=== PATIENT | female | born 1935 | race Caucasian/White ===

== ENCOUNTER 2018-08-08 15:13 | Outpatient (CLI) | payer MEDICARE, BC ==
--- NOTE | 2018-08-08 15:58 | BD ---
DEXA BONE DENSITOMETRY: (Dual energy X-ray Absorptiometry) 08/08/18 HISTORY: 82-year-old white female for postmenopausal, age-related, osteoporosis screening examination. Ht. 65 inches. Wt. 100 lb. Age of menopause: 48 years. COMPARISON: None available. FINDINGS: The bone mineral density (BMD) is given in grams per square centimeter (g/cm2): LUMBAR SPINE: BMD(g/cm2) T-score Z-score L1: 0.623 -3.3 -0.8 L2: 0.643 -3.5 -0.7 L3: 0.591 -4.5 -1.5 L4: 0.692 -3.4 -0.3 Total: 0.641 -3.7 -0.8 HIP: Femoral neck: 0.582 -2.4 0.1 Total: 0.454 -4.0 1.7 IMPRESSION: 1) The mean bone mineral density of the lumbar spine is osteoporotic. Fracture risk is high. 2) The bone mineral density of the femoral neck is osteoporotic. Fracture risk is high. JN R POS: [facility]
--- NOTE | 2018-08-08 16:02 | RAD ---
FEXAM:AP pelvis HISTORY: Hip pain bilateral COMPARISON: 05/16/2016 study. FINDINGS:The bones are demineralized. Pelvic ring is intact without evidence of acute fracture. There is deformity to the right side of the symphysis consistent with old injury possibly an old healed in sufficiency fracture. Marked arthritic changes of both hips with osteonecrosis changes are very simil ar to the previous exam. IMPRESSION:No acute changes.
--- NOTE | 2018-08-08 16:02 | RAD ---
FExam:Left hip 2 views HISTORY: Pain. Bilateral pain. COMPARISON: 11/16/2010 FINDINGS: Severe deformity of the left hip joint space. There is remodeling of the femoral head. Ther e is sclerosis of the femoral head as well as the acetabulum. IMPRESSION: Changes and deformity involving the left hip, due to degenerative change. Findings have d eveloped since the previous examination from 11/16/2010
--- NOTE | 2018-08-08 16:08 | RAD ---
RIGHT HIP TWO VIEW 08/08/18 HISTORY: Pain. COMPARISON: Radiograph from 2017. 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 This is similar to the comparison exams. Old obturator ring fractures. IMPRESSION: Avascular necrosis femoral head with flattening and articular surface remodeling with large osteophyt e formation and secondary degenerative disease of the acetabulum. POS: [facility]
== END 2018-08-08 15:14 | disposition home or self-care (01) ==
LOC: BICMAMMO 15:13
PROVIDERS: ATTEND Internal Medicine Rheumatology
DX: M81.0 Age-related osteoporosis without current pathological fracture (principal); M25.551 Pain in right hip; M87.851 Other osteonecrosis, right femur; M25.751 Osteophyte, right hip; M16.0 Bilateral primary osteoarthritis of hip
CPT/HCPCS: 72170; 77080

== ENCOUNTER 2018-08-18 21:51 | Emergency (ER) | payer MEDICARE, BC ==
[2018-08-18 22:34] LABS: #Basophils 0.1 thou/uL (0.0-0.2); #Eosinphils 0.2 thou/uL (0.0-0.7); #Lymphocytes 2.1 thou/uL (1.20-3.40); #Monocytes 0.7 thou/uL (0.11-0.59); #Neutrophils 6.2 thou/uL (1.40-6.50); %Eosinophils 1.7 % (0.0-10.0); %Lymphocytes 23.1 % (21.0-51.0); %Neutrophils 67.3 % (42.0-75.0); Hemoglobin 12.6 g/dL (12.0-16.0); Mean Corpuscular HGB CONC 33.5 g/dL (32.0-36.0); Mean Corpuscular Hemoglobin 33.7 pg (27.0-31.0); Mean Platelet Volume 6.1 fL (7.4-10.4); Platelet Count 464 thou/uL (130-400); RBC Distribution Width 11.7 % (11.5-14.5); Red Blood Cell (RBC) Count 3.74 mill/uL (4.20-5.40); White Blood Cell (WBC) Count 9.3 thou/uL (4.8-10.8)
[2018-08-18 22:55] LABS: ALT (SGPT) 11 U/L (8-55); AST (SGOT) 15 U/L (5-34); Albumin 3.9 g/dL (3.4-4.8); Alkaline Phosphatase 64 U/L (40-150); Anion Gap 12 mmol/L (10-20); BUN (Urea Nitrogen) 20 mg/dL (9.8-20.1); Bilirubin, Total 0.3 mg/dL (0.2-1.2); Calc. Creatinine Clearance 0 mL/min (70-130); Calcium 9.4 mg/dL (7.8-10.44); Carbon Dioxide 26 mmol/L (23-31); Chloride 96 mmol/L (98-107); Estimated GFR-MDRD 78; Globulin 2.7 g/dL (2.4-3.5); Glucose 100 mg/dL (83-110); Potassium 3.6 mmol/L (3.5-5.1); Protein, Total 6.6 g/dL (6.0-8.3); Sodium 130 mmol/L (136-145)
--- NOTE | 2018-08-18 23:05 | RAD ---
Chest one view HISTORY: Syncope. FINDINGS: Cardiac silhouette is magnified and enlarged. Pulmonary vasculature is unremarkable. Medias tinum is midline with aortic calcification. No lobar consolidation or evidence of pneumothorax. Degenerative changes of the shoulders. monitoring and evaluation advisor leads overlie the chest. IMPRESSION: Borderline cardiomegaly. Atherosclerosis.
== END 2018-08-19 00:30 | disposition home or self-care (01) ==
LOC: ERS 21:51
DX: I10 Essential (primary) hypertension (principal); M35.3 Polymyalgia rheumatica; Z79.899 Other long term (current) drug therapy
CPT/HCPCS: 36415; 71045; 80053; 83880; 84484; 85025; 93005; 94760

== ENCOUNTER 2019-02-22 16:23 | Inpatient (IN) | payer MEDICARE, BC ==
[2019-02-22 17:19] LABS: #Basophils 0.1 thou/uL (0.0-0.2); #Eosinphils 0.1 thou/uL (0.0-0.7); #Lymphocytes 1.1 thou/uL (1.20-3.40); #Monocytes 0.4 thou/uL (0.11-0.59); #Neutrophils 8.8 thou/uL (1.40-6.50); %Basophils 0.7 % (0.0-1.0); %Eosinophils 0.8 % (0.0-10.0); %Lymphocytes 10.3 % (21.0-51.0); %Monocytes 3.4 % (0.0-10.0); %Neutrophils 84.7 % (42.0-75.0); Mean Corpuscular HGB CONC 33.5 g/dL (32.0-36.0); Mean Corpuscular Hemoglobin 32.2 pg (27.0-31.0); Mean Corpuscular Volume 96.2 fL (78.0-98.0); Mean Platelet Volume 7.2 fL (7.4-10.4); Platelet Count 375 thou/uL (130-400); Red Blood Cell (RBC) Count 4.96 mill/uL (4.20-5.40); White Blood Cell (WBC) Count 10.4 thou/uL (4.8-10.8)
[2019-02-22] MEDS ORDERED: Piperacillin/Tazobactam 3.375 GM VIAL ONE (17:20)
[2019-02-22] MEDS ORDERED: Acetaminophen 325 MG TAB ONE (17:20)
--- NOTE | 2019-02-22 17:24 | CT ---
EXAM: CT brain without contrast HISTORY: Confusion and altered mental status. COMPARISON: None TECHNIQUE: Multiple contiguous axial images were obtained and a CT of the brain without contrast. FINDINGS: There are scattered hypodensities in the subcortical and periventricular white matter consi stent with small vessel ischemic disease. There is no evidence of hydrocephalus, intracranial hemorrhage, or extra-axial fluid collection. The calvarium and overlying soft tissues are unremarkable. The visualized paranasal sinuses and masto id air cells are well aerated. IMPRESSION: No evidence of acute intracranial abnormality
[2019-02-22 17:42] LABS: ALT (SGPT) 17 U/L (8-55); AST (SGOT) 20 U/L (5-34); Albumin 4.6 g/dL (3.4-4.8); Alkaline Phosphatase 94 U/L (40-110); Anion Gap 14 mmol/L (10-20); BUN (Urea Nitrogen) Less than 4 mg/dL (9.8-20.1); Bilirubin, Total 0.8 mg/dL (0.2-1.2); Calc. Creatinine Clearance 0 mL/min (70-130); Calcium 10.2 mg/dL (7.8-10.44); Carbon Dioxide 26 mmol/L (23-31); Chloride 99 mmol/L (98-107); Estimated GFR-MDRD 76; Globulin 3.7 g/dL (2.4-3.5); Glucose 101 mg/dL (83-110); Potassium 3.7 mmol/L (3.5-5.1); Protein, Total 8.3 g/dL (6.0-8.3); Sodium 135 mmol/L (136-145)
--- NOTE | 2019-02-22 17:46 | RAD ---
RADIOGRAPH CHEST 1 VIEW: DATE: 02/22/2019 HISTORY: 83-year-old female with altered mental status. Concern for aspiration. FINDINGS: There is cardiomegaly. There is no evidence of airspace density, pulmonary edema, or pneumothorax. Th e lateral costophrenic angles are not effaced. IMPRESSION: 1) No acute pulmonary findings. 2) cardiomegaly without congestive heart failure.
[2019-02-22] MEDS ORDERED: Diltiazem HCl 125 MG, Admixture Fee 1 EACH in Sodium Chloride 0.9% 100 ML IVPB SCH (19:30)
[2019-02-22] MEDS ORDERED: Sodium Chloride 0.9% 1,000 ML IV SCH (21:30)
[2019-02-22] MEDS ORDERED: Senokot S 8.6-50 MG TAB PO PRN (21:36)
[2019-02-22] MEDS ORDERED: Diltiazem 125 MG in Sodium Chloride 0.9% 100 ML IVPB SCH (22:00)
[2019-02-22] MEDS ORDERED: Enoxaparin Sodium 60 MG/0.6 ML SYRINGE SC SCH (22:45)
[2019-02-22 22:53] VITALS: BMI 18.2
[2019-02-23] MEDS: Piperacillin/Tazobactam 4.5 GM in Sodium Chloride 0.9% 100 ML IVPB SCH ×3 (01:16→17:57)
[2019-02-23] MEDS: Acetaminophen 325 MG TAB PO PRN ×2 (01:18→11:52)
--- NOTE | 2019-02-23 01:19 | HP ---
CHIEF COMPLAINT: Confusion. HISTORY OF PRESENT ILLNESS: The patient is an 83-year-old female with past medical history of hypertension, who presents to the hospital with confusion. The patient's son who is at the bedside states that the patient lives at home with her and he noticed that today she has been acting really strange, very confused. He did state that at times she will forget things and he has noticed some changes in her; however, today the changes were really significant, so that concerned him, so he brought her to the hospital for further evaluation. The patient's son also stated that she has been having some issues with her right foot and recently was on oral antibiotics and she finished those antibiotics about 2 or 3 days ago. According to him, there was no fevers, or chills, any nausea, vomiting, or any diarrhea. PAST MEDICAL HISTORY: Hypertension and also history of polymyalgia rheumatica. PAST SURGICAL HISTORY: She has had a hysterectomy, orthopedic surgery, wrist surgery and tonsillectomy. SOCIAL HISTORY: She denies any smoking history; however, drinks a glass of wine every night. Lives at home with . She is a full code per the son. ALLERGIES: HYDROCODONE. MEDICATIONS: 1. Aspirin 81 mg daily. 2. Cardizem 180 mg daily. 3. Gabapentin 300 mg daily. 4. Isosorbide 100 mg daily. 5. Losartan 100 mg daily. 6. Methotrexate 2.5 mg daily. 7. Metoprolol 25 mg daily. 8. Prednisone 5 mg daily. 9. Tramadol 50 mg 1 to 2 every 6 hours p.r.n. PHYSICAL EXAMINATION: VITAL SIGNS: Temperature of 99.0, O2 saturation 99% on room air, pulse was 123, blood pressure 185/87. GENERAL: She is awake; however, she is oriented to herself. When you ask her about the hospital, she says she is in the hospital; however, she is in [place]. CV: S1 and S2 present. Irregularly irregular. Rate controlled currently. LUNGS: Clear to auscultation. No rhonchi or wheezes noted. ABDOMEN: Soft. Bowel sounds are present x2. Mild pain upon palpation all around. EXTREMITIES: Her right lower leg has erythema. Pedal pulses are present bilaterally. There is no open cuts, lesions, or bruises. She does have pressure and some skin erythema at bilateral heels. NEUROVASCULAR: No focal deficits noted. She is able to move everything. SKIN: As I mentioned, her right leg does have some erythema. LABORATORY DATA: Are as of the following; WBCs of 10.4, hemoglobin of 16.0, hematocrit of 47.7, platelets of 375. Chemistry; sodium of 135, potassium of 3.7, BUN of less than 4, creatinine of 0.73. Troponin x1 is negative. DIAGNOSTIC STUDIES: She did have a CT brain and a chest x-ray. Her CT head did not show any intracranial abnormalities and her chest x-ray also was normal. ASSESSMENT AND PLAN: The patient is an 83-year-old female, who presents to the hospital with increased confusion. 1. Acute metabolic encephalopathy. This could be secondary to possible worsening of her cellulitis of her right foot versus cardiac in nature. Her troponin x1 was negative. She was found to be in atrial fibrillation with rapid ventricular response. I will start her on some Cardizem. Her CHADS Vasc score is greater than 2. I will start her also on some Lovenox. According to the son, the patient was on aspirin. She is at a fall risk. She only transfers from bed to chair, does not walk on a regular basis. We will get an echo and may consider consulting Cardiology. 2. Possible cellulitis. She is immunocompromised. She is on methotrexate and also on prednisone. She was on Keflex per the ER notes and the son stated that she finished that about 2 days ago. I will put her on some broad-spectrum antibiotics. I am going to go ahead and do some arterial Dopplers to her lower extremities and continue to monitor. 3. Hypertension. She is currently on Cardizem drip and we will continue her home medications. 4. Polymyalgia rheumatica. I will continue her prednisone to prevent any hypotension and I will check an ESR and a CRP. 5. Deep venous thrombosis prophylaxis. The patient is already on Lovenox, which we will continue. Job ID: [id number]
[2019-02-23 07:23] LABS: #Eosinphils 0.2 thou/uL (0.0-0.7); #Lymphocytes 1.3 thou/uL (1.20-3.40); #Monocytes 0.5 thou/uL (0.11-0.59); #Neutrophils 4.1 thou/uL (1.40-6.50); %Basophils 0.8 % (0.0-1.0); %Eosinophils 3.2 % (0.0-10.0); %Lymphocytes 20.7 % (21.0-51.0); %Monocytes 8.6 % (0.0-10.0); %Neutrophils 66.8 % (42.0-75.0); Hemoglobin 13.8 g/dL (12.0-16.0); Mean Corpuscular HGB CONC 33.1 g/dL (32.0-36.0); Mean Corpuscular Volume 96.9 fL (78.0-98.0); Mean Platelet Volume 7.2 fL (7.4-10.4); Platelet Count 275 thou/uL (130-400); White Blood Cell (WBC) Count 6.2 thou/uL (4.8-10.8)
[2019-02-23 07:43] LABS: Anion Gap 12 mmol/L (10-20); BUN (Urea Nitrogen) 6 mg/dL (9.8-20.1); Calc. Creatinine Clearance 53 mL/min (70-130); Calcium 8.9 mg/dL (7.8-10.44); Carbon Dioxide 20 mmol/L (23-31); Chloride 108 mmol/L (98-107); Estimated GFR-MDRD Greater than 90; Glucose 85 mg/dL (83-110); Potassium 3.3 mmol/L (3.5-5.1); Sodium 137 mmol/L (136-145)
[2019-02-23] MEDS: Enoxaparin Sodium 60 MG/0.6 ML SYRINGE SC SCH ×2 (09:17→21:42)
[2019-02-23] MEDS: Aspirin 81 mg Enteric Coated Tablet PO SCH (09:17)
--- NOTE | 2019-02-23 12:36 | PDOC.HOSPP ---
- Subjective Encounter Date: 02/23/19 Encounter Time: 11:30 Subjective: Expresses no complaint. Alert, coherent. - Objective Vital Signs & Weight: Vital Signs (12 hours) Temp Pulse Resp BP Pulse Ox 02/23/19 11:41 98.8 F 74 18 161/72 H 97 02/23/19 07:59 98.8 F 74 18 164/73 H 95 02/23/19 05:00 98 F 54 L 18 134/61 92 L Weight Weight 109 lb 9.116 oz I&O: 02/22/19 02/23/19 02/24/19 06:59 06:59 06:59 Output Total 1000 Balance -1000 Result Diagrams: 02/23/19 06:56 02/23/19 06:56 Hospitalist ROS - Medication Medications: Active Medications Generic Name Dose Route Start Last Admin Trade Name Freq PRN Reason Stop Dose Admin Acetaminophen 650 mg 02/22/19 21:36 02/23/19 11:52 Tylenol PO 650 mg Q4H PRN Administration Headache/Fever/Mild Pain (1-3) Aspirin 81 mg 02/23/19 09:00 02/23/19 09:17 Ecotrin PO 81 mg DAILY ALIZA Administration Enoxaparin Sodium 50 mg 02/23/19 09:00 02/23/19 09:17 Lovenox SC 50 mg 0900,2100 ALIZA Administration Piperacillin Sod/Tazobactam 100 mls @ 200 mls/hr 02/23/19 02:00 02/23/19 11: 00 Sod 4.5 gm/ Sodium Chloride IVPB 100 mls 0200,1000,1800 ALIZA Administration Diltiazem HCl 125 mg/ Sodium 125 mls @ 5 mls/hr 02/22/19 22:00 02/23/19 00:19 Chloride IVPB 125 mls INF ALIZA Administration Protocol 5 MG/HR Sodium Chloride 10 ml 02/23/19 09:00 02/23/19 09:18 Flush - Normal Saline IVF Not Given Q12HR ALIZA - Exam General Appearance: NAD Neck: no JVD Heart: RRR Respiratory: CTAB Gastrointestinal: soft Extremities: 1+ LE edema (+some redness in distal third of both legs+ skin changes of chronic venous insufficiency..) Neurological: no focal deficits Hosp A/P (1) Bilateral cellulitis of lower leg Code(s): L03.116 - CELLULITIS OF LEFT LOWER LIMB; L03.115 - CELLULITIS OF RIGHT LOWER LIMB Status: Acute Plan: on antibiotics. F/U [facility] (2) Metabolic encephalopathy Code(s): G93.41 - METABOLIC ENCEPHALOPATHY Status: Acute Plan: She is Alert and Coherent at this time. (3) HTN (hypertension) Code(s): I10 - ESSENTIAL (PRIMARY) HYPERTENSION Status: Acute Plan: Syetolic is elevated. No new intervention at this time.. (4) Polymyalgia rheumatica Code(s): M35.3 - POLYMYALGIA RHEUMATICA Status: Acute Plan: Was on immuno suppressive med.. - Plan Continue current management. f/u [facility]
[2019-02-23] MEDS ORDERED: FLU VACC TS2019-20(65YR UP)/PF 180 MCG/0.5 ML SYRINGE IM ONE (21:00)
[2019-02-23] MEDS ORDERED: Prevnar 13-Val Conj/PF 0.5 ML SYRINGE IM ONE (21:00)
[2019-02-23] MEDS: Vancomycin HCl 1 GM in Premix Bag 1 BAG IVPB SCH (21:41)
[2019-02-23] MEDS: Metoprolol Tartrate 25 MG TAB PO SCH (21:43)
[2019-02-24] MEDS: Piperacillin/Tazobactam 4.5 GM in Sodium Chloride 0.9% 100 ML IVPB SCH ×3 (01:32→18:40)
[2019-02-24] MEDS: Acetaminophen 325 MG TAB PO PRN (01:45)
[2019-02-24] MEDS ORDERED: Potassium Chloride 20 MEQ TAB PO SCH (02:30)
[2019-02-24] MEDS: traMADol HCl 50 MG TAB PO PRN (03:46)
[2019-02-24] MEDS: hydrALAZINE 20 MG/ML VIAL SLOW IVP PRN ×2 (03:47→16:23)
[2019-02-24 06:36] LABS: Anion Gap 14 mmol/L (10-20); BUN (Urea Nitrogen) 7 mg/dL (9.8-20.1); Calc. Creatinine Clearance 42 mL/min (70-130); Carbon Dioxide 19 mmol/L (23-31); Chloride 106 mmol/L (98-107); Estimated GFR-MDRD 71; Glucose 100 mg/dL (83-110); Magnesium 1.6 mg/dL (1.6-2.6); Sodium 136 mmol/L (136-145)
[2019-02-24] MEDS ORDERED: predniSONE 5 MG TAB PO SCH (08:00)
[2019-02-24] MEDS: Metoprolol Tartrate 25 MG TAB PO SCH ×2 (08:29→21:50)
[2019-02-24] MEDS: Aspirin 81 mg Enteric Coated Tablet PO SCH (08:29)
[2019-02-24] MEDS: Enoxaparin Sodium 60 MG/0.6 ML SYRINGE SC SCH ×2 (08:29→21:50)
[2019-02-24] MEDS: Chlorthalidone 25 MG TAB PO SCH (08:29)
[2019-02-24] MEDS: Gabapentin 300 MG CAP PO SCH (08:29)
--- NOTE | 2019-02-24 09:34 | PDOC.HOSPP ---
- Subjective Encounter Date: 02/24/19 Encounter Time: 09:32 Subjective: no distress , oriented to person only - Objective Vital Signs & Weight: Vital Signs (12 hours) Temp Pulse Resp BP Pulse Ox 02/24/19 08:24 97.8 F 67 18 161/72 H 95 02/24/19 04:00 98.6 F 60 16 181/80 H 98 02/24/19 03:47 67 02/24/19 00:00 67 177/125 H Weight Weight 109 lb 9.116 oz I&O: 02/23/19 02/24/19 02/25/19 06:59 06:59 06:59 Intake Total 1840 Output Total 2850 Balance -1010 Result Diagrams: 02/23/19 06:56 02/24/19 06:02 Hospitalist ROS - Medication Medications: Active Medications Generic Name Dose Route Start Last Admin Trade Name Freq PRN Reason Stop Dose Admin Acetaminophen 650 mg 02/22/19 21:36 02/24/19 01:45 Tylenol PO 650 mg Q4H PRN Administration Headache/Fever/Mild Pain (1-3) Aspirin 81 mg 02/23/19 09:00 02/24/19 08:29 Ecotrin PO 81 mg DAILY ALIZA Administration Chlorthalidone 25 mg 02/24/19 09:00 02/24/19 08:29 Hygroton PO 25 mg DAILY ALIZA Administration Diltiazem HCl 180 mg 02/24/19 09:00 02/24/19 08:29 Cardizem Cd PO 180 mg DAILY ALIZA Administration Enoxaparin Sodium 50 mg 02/23/19 09:00 02/24/19 08:29 Lovenox SC 50 mg 0900,2100 ALIZA Administration Gabapentin 300 mg 02/24/19 09:00 02/24/19 08:29 Neurontin PO 300 mg DAILY ALIZA Administration Hydralazine HCl 5 mg 02/24/19 02:25 02/24/19 03:47 Apresoline SLOW IVP 5 mg Q6HR PRN Administration Blood Pressure Vancomycin HCl 1 gm/ Device 200 mls @ 200 mls/hr 02/23/19 20:00 02/23/19 21: 41 IVPB 200 mls Q24HR@2000 ALIZA Administration Piperacillin Sod/Tazobactam 100 mls @ 200 mls/hr 02/23/19 02:00 02/24/19 01: 32 Sod 4.5 gm/ Sodium Chloride IVPB 100 mls 0200,1000,1800 ALIZA Administration Diltiazem HCl 125 mg/ Sodium 125 mls @ 5 mls/hr 02/22/19 22:00 02/23/19 00:19 Chloride IVPB 125 mls INF ALIZA Administration Protocol 5 MG/HR Metoprolol Tartrate 25 mg 02/23/19 21:00 02/24/19 08:29 Lopressor PO 25 mg BID ALIZA Administration Prednisone 5 mg 02/24/19 08:00 02/24/19 08:29 Prednisone PO 5 mg QAM-WM ALIZA Administration Sodium Chloride 10 ml 02/23/19 09:00 02/24/19 08:30 Flush - Normal Saline IVF 10 ml Q12HR ALIZA Administration Tramadol HCl 50 mg 02/24/19 02:26 02/24/19 03:46 Ultram PO 50 mg Q8H PRN Administration Pain - Exam General Appearance: awake alert Neck: no JVD Heart: irregular Respiratory: CTAB Gastrointestinal: soft, normal bowel sounds Extremities: no edema Extremities - other findings: erythema RLE on anterior surface Hosp A/P (1) Encephalopathy acute Code(s): G93.40 - ENCEPHALOPATHY, UNSPECIFIED Status: Acute (2) Atrial fibrillation with rapid ventricular response Code(s): I48.91 - UNSPECIFIED ATRIAL FIBRILLATION Status: Acute (3) Cellulitis and abscess of right leg Code(s): L03.115 - CELLULITIS OF RIGHT LOWER LIMB; L02.415 - CUTANEOUS ABSCESS OF RIGHT LOWER LIMB Status: Acute (4) HTN (hypertension) Code(s): I10 - ESSENTIAL (PRIMARY) HYPERTENSION Status: Chronic Qualifiers: Hypertension type: essential hypertension Qualified Code(s): I10 - Essential (primary) hypertension (5) Polymyalgia rheumatica Code(s): M35.3 - POLYMYALGIA RHEUMATICA Status: Chronic - Plan cont iv antibx transition to po meds for atrial fib cont po prednisone discuss with family
[2019-02-24 19:33] LABS: Vancomycin, Trough 6.3 ug/mL
[2019-02-24] MEDS ORDERED: Vancomycin HCl 750 MG in Sodium Chloride 0.9% 250 ML 250 ML IVPB SCH (21:00)
[2019-02-24] MEDS: Vancomycin HCl 1 GM in Premix Bag 1 BAG IVPB SCH (22:00)
[2019-02-25] MEDS: Piperacillin/Tazobactam 4.5 GM in Sodium Chloride 0.9% 100 ML IVPB SCH (03:19)
--- NOTE | 2019-02-25 08:49 | PDOC.HOSPP ---
- Subjective Encounter Date: 02/25/19 Encounter Time: 08:48 Subjective: alert, happy - Objective Vital Signs & Weight: Vital Signs (12 hours) Temp Pulse Resp BP Pulse Ox 02/25/19 07:47 97.8 F 98 18 199/87 H 95 02/25/19 04:00 98.4 F 63 18 172/70 H 98 Weight Admit Weight 109 lb 9.116 oz Weight 101 lb 13.657 oz I&O: 02/24/19 02/25/19 02/26/19 06:59 06:59 06:59 Intake Total 1840 1620 Output Total 2850 1340 Balance -1010 280 Result Diagrams: 02/23/19 06:56 02/24/19 06:02 Hospitalist ROS - Medication Medications: Active Medications Generic Name Dose Route Start Last Admin Trade Name Freq PRN Reason Stop Dose Admin Acetaminophen 650 mg 02/22/19 21:36 02/24/19 01:45 Tylenol PO 650 mg Q4H PRN Administration Headache/Fever/Mild Pain (1-3) Chlorthalidone 25 mg 02/24/19 09:00 02/24/19 08:29 Hygroton PO 25 mg DAILY ALIZA Administration Enoxaparin Sodium 50 mg 02/23/19 09:00 02/24/19 21:50 Lovenox SC 50 mg 0900,2100 ALIZA Administration Gabapentin 300 mg 02/24/19 09:00 02/24/19 08:29 Neurontin PO 300 mg DAILY ALIZA Administration Hydralazine HCl 5 mg 02/24/19 02:25 02/24/19 16:23 Apresoline SLOW IVP 5 mg Q6HR PRN Administration Blood Pressure Metoprolol Tartrate 25 mg 02/24/19 21:00 02/24/19 21:50 Lopressor PO 25 mg BID ALIZA Administration Miscellaneous Medication 25 mg 02/24/19 09:00 02/24/19 13:11 Movantik PO 25 mg DAILY ALIZA Administration Sodium Chloride 10 ml 02/23/19 09:00 02/24/19 21:51 Flush - Normal Saline IVF 10 ml Q12HR ALIZA Administration Tramadol HCl 50 mg 02/24/19 02:26 02/24/19 03:46 Ultram PO 50 mg Q8H PRN Administration Pain - Exam General Appearance: awake alert Neck: no JVD Heart: RRR, no murmur Respiratory: CTAB Gastrointestinal: soft, non-tender, normal bowel sounds Extremities: no edema Extremities - other findings: erythema RLE Hosp A/P (1) Encephalopathy acute Code(s): G93.40 - ENCEPHALOPATHY, UNSPECIFIED Status: Acute (2) Atrial fibrillation with rapid ventricular response Code(s): I48.91 - UNSPECIFIED ATRIAL FIBRILLATION Status: Chronic (3) Cellulitis and abscess of right leg Code(s): L03.115 - CELLULITIS OF RIGHT LOWER LIMB; L02.415 - CUTANEOUS ABSCESS OF RIGHT LOWER LIMB Status: Acute (4) HTN (hypertension) Code(s): I10 - ESSENTIAL (PRIMARY) HYPERTENSION Status: Chronic Qualifiers: Hypertension type: essential hypertension Qualified Code(s): I10 - Essential (primary) hypertension (5) Polymyalgia rheumatica Code(s): M35.3 - POLYMYALGIA RHEUMATICA Status: Chronic - Plan now in [facility]SR, cont meds, asa loathe to anticoagulate, will discuss with family cont carolina lehman tomorrow
[2019-02-25] MEDS ORDERED: cefTRIAXone\\ROCEPHIN 1 GM in Sodium Chloride 0.9% 100 ML IVPB SCH (09:00)
[2019-02-25] MEDS ORDERED: Non-Formulary Item 1 EACH (Losartan Potassium [Losartan Potassium] 100 MG) PO SCH (09:00)
[2019-02-25] MEDS: Gabapentin 300 MG CAP PO SCH (09:31)
[2019-02-25] MEDS: Metoprolol Tartrate 25 MG TAB PO SCH ×2 (09:32→20:57)
[2019-02-25] MEDS: Enoxaparin Sodium 60 MG/0.6 ML SYRINGE SC SCH ×2 (09:32→20:58)
[2019-02-25] MEDS: Chlorthalidone 25 MG TAB PO SCH (09:32)
[2019-02-25] MEDS: predniSONE 5 MG TAB PO SCH (09:32)
[2019-02-25] MEDS: Aspirin 81 mg Enteric Coated Tablet PO SCH (09:32)
[2019-02-25] MEDS: Losartan 25 MG TAB PO SCH (09:36)
[2019-02-25] MEDS: hydrALAZINE 20 MG/ML VIAL SLOW IVP PRN (20:57)
--- NOTE | 2019-02-25 22:31 | CON ---
DATE OF CONSULTATION: 02/25/2019 CONSULTING PHYSICIAN: Hospitalist Service. IMPRESSION: 1. Dementia. 2. Prior right posterior parietal stroke. 3. Atrial fibrillation. 4. Hypertension. PLAN: 1. Consider either antiplatelet therapy versus anticoagulation to reduce stroke risk. 2. intermediate placement. HISTORY OF PRESENT ILLNESS: Ms. Cerna is an 83-year-old woman who was admitted from the long term. She has a history of hypertension and polymyalgia rheumatica. She had initial CT scan in the emergency room, which showed an old area of infarction in the right posterior parietal region. Echocardiogram shows a normal ejection fraction. She is in intermittent atrial fibrillation. She is unable to give me any further history as to what has taken place. PAST MEDICAL HISTORY: As listed above. ALLERGIES: HYDROCODONE. MEDICATIONS: Medication list from long term was reviewed and appears that she was on aspirin prior to admission. SOCIAL HISTORY: Otherwise unknown. FAMILY HISTORY: Unknown. REVIEW OF SYSTEMS: Not obtainable. PHYSICAL EXAMINATION: GENERAL: She is a thin, elderly lady, is partially covered up while lying in bed, watching television. HEENT: Pupils are equal. Conjunctivae are clear. Oropharynx is clear. Cranium, normocephalic and atraumatic. NECK: Supple. No lymphadenopathy. EXTREMITIES: No cyanosis, clubbing, or edema. NEUROLOGIC: She is alert and only oriented to person. She has no idea where she is. She thought that she is in some relative's home. She is capable following commands well. Her speech seems to be fluent and clear. She is able to name objects without difficulty. Cranial nerves are intact throughout. Motor exam shows good contracting executive strength bilaterally. There is no fix or drift present. I did not elicit any loss of a visual field on the left. Sensation is intact. There is no tremor or dysmetria present. SUMMARY: This is an 83-year-old woman with dementia and a prior stroke. She was previously admitted on aspirin, which would be a reasonable plan considering her overall picture. I do not see anything in particular that we can do for her dementia. She can be transferred back to the long term at your discretion. Job ID: [id number]
[2019-02-25] MEDS: traMADol HCl 50 MG TAB PO PRN (23:20)
[2019-02-26] MEDS ORDERED: hydrALAZINE 20 MG/ML VIAL SLOW IVP PRN ×2 (03:33→03:53)
[2019-02-26] MEDS: Acetaminophen 325 MG TAB PO PRN ×2 (06:09→22:34)
--- NOTE | 2019-02-26 07:36 | PDOC.HOSPP ---
- Subjective Encounter Date: 02/26/19 Encounter Time: 07:36 Subjective: cheerfull, still confused - Objective Vital Signs & Weight: Vital Signs (12 hours) Temp Pulse Resp BP BP Pulse Ox 02/26/19 06:44 63 151/94 H 02/26/19 04:28 62 191/88 H 02/26/19 04:00 98.9 F 62 18 191/88 H 98 02/25/19 23:29 61 189/83 H 02/25/19 20:57 65 208/87 H Weight Admit Weight 109 lb 9.116 oz Weight 95 lb 7.362 oz I&O: 02/25/19 02/26/19 02/27/19 06:59 06:59 06:59 Intake Total 1620 1380 Output Total 1340 2160 Balance 280 -780 Result Diagrams: 02/23/19 06:56 02/24/19 06:02 Hospitalist ROS - Medication Medications: Active Medications Generic Name Dose Route Start Last Admin Trade Name Freq PRN Reason Stop Dose Admin Acetaminophen 650 mg 02/22/19 21:36 02/26/19 06:09 Tylenol PO 650 mg Q4H PRN Administration Headache/Fever/Mild Pain (1-3) Aspirin 81 mg 02/25/19 09:00 02/25/19 09:32 Ecotrin PO 81 mg DAILY ALIZA Administration Chlorthalidone 25 mg 02/24/19 09:00 02/25/19 09:32 Hygroton PO 25 mg DAILY ALIZA Administration Enoxaparin Sodium 50 mg 02/23/19 09:00 02/25/19 20:58 Lovenox SC 50 mg 0900,2100 ALIZA Administration Gabapentin 300 mg 02/24/19 09:00 02/25/19 09:31 Neurontin PO 300 mg DAILY ALIZA Administration Hydralazine HCl 10 mg 02/26/19 03:53 02/26/19 04:28 Apresoline SLOW IVP 10 mg Q6HR PRN Administration SBP Greater Than 180 Losartan Potassium 100 mg 02/25/19 09:00 02/25/19 09:36 Cozaar PO 100 mg DAILY ALIZA Administration Metoprolol Tartrate 25 mg 02/24/19 21:00 02/25/19 20:57 Lopressor PO 25 mg BID ALIZA Administration Miscellaneous Medication 25 mg 02/24/19 09:00 02/25/19 09:31 Movantik PO 25 mg DAILY ALIZA Administration Prednisone 5 mg 02/25/19 09:00 02/25/19 09:32 Prednisone PO 5 mg DAILY ALIZA Administration Sodium Chloride 10 ml 02/23/19 09:00 02/25/19 20:58 Flush - Normal Saline IVF 10 ml Q12HR ALIZA Administration Tramadol HCl 50 mg 02/24/19 02:26 02/25/19 23:20 Ultram PO 50 mg Q8H PRN Administration Pain - Exam General Appearance: awake alert Neck: no JVD Heart: RRR, no murmur Respiratory: CTAB Gastrointestinal: soft, normal bowel sounds Extremities: no edema Hosp A/P (1) Encephalopathy acute Code(s): G93.40 - ENCEPHALOPATHY, UNSPECIFIED Status: Resolved (2) Atrial fibrillation with rapid ventricular response Code(s): I48.91 - UNSPECIFIED ATRIAL FIBRILLATION Status: Chronic (3) Cellulitis and abscess of right leg Code(s): L03.115 - CELLULITIS OF RIGHT LOWER LIMB; L02.415 - CUTANEOUS ABSCESS OF RIGHT LOWER LIMB Status: Acute (4) HTN (hypertension) Code(s): I10 - ESSENTIAL (PRIMARY) HYPERTENSION Status: Chronic Qualifiers: Hypertension type: essential hypertension Qualified Code(s): I10 - Essential (primary) hypertension (5) Polymyalgia rheumatica Code(s): M35.3 - POLYMYALGIA RHEUMATICA Status: Chronic (6) Dementia Code(s): F03.90 - UNSPECIFIED DEMENTIA WITHOUT BEHAVIORAL DISTURBANCE Status: Acute Qualifiers: Dementia type: unspecified type Dementia behavioral disturbance: without behavioral disturbance Qualified Code(s): F03.90 - Unspecified dementia without behavioral disturbance - Plan now in [facility]SR, cont meds, asa loathe to anticoagulate, will discuss with family change antibx to po omnicef incease diltizem fo elevated BP
[2019-02-26] MEDS: predniSONE 5 MG TAB PO SCH (08:40)
[2019-02-26] MEDS: Aspirin 81 mg Enteric Coated Tablet PO SCH (08:40)
[2019-02-26] MEDS: Chlorthalidone 25 MG TAB PO SCH (08:41)
[2019-02-26] MEDS: Gabapentin 300 MG CAP PO SCH (08:41)
[2019-02-26] MEDS: Metoprolol Tartrate 25 MG TAB PO SCH ×2 (08:41→19:30)
[2019-02-26] MEDS: Losartan 25 MG TAB PO SCH (08:42)
[2019-02-26] MEDS: Cefdinir 300 MG CAP PO SCH (08:43)
[2019-02-26] MEDS: Enoxaparin Sodium 60 MG/0.6 ML SYRINGE SC SCH ×2 (08:54→19:30)
[2019-02-26] MEDS ORDERED: Potassium Chloride 20 MEQ TAB PO SCH (16:45)
[2019-02-27] MEDS: traMADol HCl 50 MG TAB PO PRN (01:07)
[2019-02-27] MEDS: Gabapentin 300 MG CAP PO SCH (08:06)
[2019-02-27] MEDS: Enoxaparin Sodium 60 MG/0.6 ML SYRINGE SC SCH (08:06)
[2019-02-27] MEDS: Losartan 25 MG TAB PO SCH (08:06)
[2019-02-27] MEDS: Aspirin 81 mg Enteric Coated Tablet PO SCH (08:06)
[2019-02-27] MEDS: Cefdinir 300 MG CAP PO SCH (08:06)
[2019-02-27] MEDS: Chlorthalidone 25 MG TAB PO SCH (08:06)
[2019-02-27] MEDS: predniSONE 5 MG TAB PO SCH (08:07)
[2019-02-27] MEDS: Metoprolol Tartrate 25 MG TAB PO SCH (08:07)
--- NOTE | 2019-02-27 08:39 | PDOC.HOSPP ---
- Subjective Encounter Date: 02/27/19 Encounter Time: 08:36 Subjective: alert, cheerfull - Objective Vital Signs & Weight: Vital Signs (12 hours) Temp Pulse Resp BP BP Pulse Ox 02/27/19 07:48 98.0 F 66 18 192/81 H 95 02/27/19 04:15 98.7 F 58 L 16 143/65 H 95 02/27/19 00:00 54 L 16 148/72 H Weight Admit Weight 109 lb 9.116 oz Weight 93 lb 9.6 oz I&O: 02/26/19 02/27/19 02/28/19 06:59 06:59 06:59 Intake Total 1380 850 Output Total 2160 1650 Balance -780 -800 Result Diagrams: 02/23/19 06:56 02/24/19 06:02 Hospitalist ROS - Medication Medications: Active Medications Generic Name Dose Route Start Last Admin Trade Name Freq PRN Reason Stop Dose Admin Acetaminophen 650 mg 02/22/19 21:36 02/26/19 22:34 Tylenol PO 650 mg Q4H PRN Administration Headache/Fever/Mild Pain (1-3) Aspirin 81 mg 02/25/19 09:00 02/27/19 08:06 Ecotrin PO 81 mg DAILY ALIZA Administration Cefdinir 600 mg 02/26/19 09:00 02/27/19 08:06 Omnicef PO 600 mg DAILY ALIZA Administration Chlorthalidone 25 mg 02/24/19 09:00 02/27/19 08:06 Hygroton PO 25 mg DAILY ALIZA Administration Diltiazem HCl 240 mg 02/26/19 09:00 02/27/19 08:06 Cardizem Cd PO 240 mg DAILY ALIZA Administration Enoxaparin Sodium 50 mg 02/23/19 09:00 02/27/19 08:06 Lovenox SC 50 mg 0900,2100 ALIZA Administration Gabapentin 300 mg 02/24/19 09:00 02/27/19 08:06 Neurontin PO 300 mg DAILY ALIZA Administration Hydralazine HCl 10 mg 02/26/19 03:53 02/26/19 04:28 Apresoline SLOW IVP 10 mg Q6HR PRN Administration SBP Greater Than 180 Losartan Potassium 100 mg 02/25/19 09:00 02/27/19 08:06 Cozaar PO 100 mg DAILY ALIZA Administration Metoprolol Tartrate 25 mg 02/24/19 21:00 02/27/19 08:07 Lopressor PO 25 mg BID ALIZA Administration Miscellaneous Medication 25 mg 02/24/19 09:00 02/27/19 08:07 Movantik PO 25 mg DAILY ALIZA Administration Prednisone 5 mg 02/25/19 09:00 02/27/19 08:07 Prednisone PO 5 mg DAILY ALIZA Administration Sodium Chloride 10 ml 02/23/19 09:00 02/27/19 08:15 Flush - Normal Saline IVF 10 ml Q12HR ALIZA Administration Tramadol HCl 50 mg 02/24/19 02:26 02/27/19 01:07 Ultram PO 50 mg Q8H PRN Administration Pain - Exam Neck: no JVD Heart: RRR Respiratory: CTAB Gastrointestinal: soft Extremities: no edema Extremities - other findings: erythema RL leg resolved Hosp A/P (1) Encephalopathy acute Code(s): G93.40 - ENCEPHALOPATHY, UNSPECIFIED Status: Resolved (2) Atrial fibrillation with rapid ventricular response Code(s): I48.91 - UNSPECIFIED ATRIAL FIBRILLATION Status: Chronic (3) Cellulitis and abscess of right leg Code(s): L03.115 - CELLULITIS OF RIGHT LOWER LIMB; L02.415 - CUTANEOUS ABSCESS OF RIGHT LOWER LIMB Status: Acute (4) HTN (hypertension) Code(s): I10 - ESSENTIAL (PRIMARY) HYPERTENSION Status: Chronic Qualifiers: Hypertension type: essential hypertension Qualified Code(s): I10 - Essential (primary) hypertension (5) Polymyalgia rheumatica Code(s): M35.3 - POLYMYALGIA RHEUMATICA Status: Chronic (6) Dementia Code(s): F03.90 - UNSPECIFIED DEMENTIA WITHOUT BEHAVIORAL DISTURBANCE Status: Acute Qualifiers: Dementia type: unspecified type Dementia behavioral disturbance: without behavioral disturbance Qualified Code(s): F03.90 - Unspecified dementia without behavioral disturbance - Plan cont omnicef cont cardizem, etc probable DC today
[2019-02-27 11:10] VITALS: BP 152/73; TEMP 98.3
--- NOTE | 2019-02-28 06:16 | DIS ---
DATE OF ADMISSION: 02/22/2019 DATE OF DISCHARGE: 02/27/2019 ADMIT DIAGNOSIS: The patient admitted with the diagnosis of encephalopathy. FINAL DIAGNOSES: Senile dementia, atrial fibrillation, cellulitis of lower extremity, hypertension, polymyalgia rheumatica. DISCHARGE MEDICATIONS: 1. Metoprolol 25 mg twice a day. 2. Methotrexate 20 mg every seven days. 3. Gabapentin 300 mg a day. 4. Movantik 25 mg a day. 5. Losartan 100 mg a day. 6. Isosorbide 10 mg twice a day. 7. Chlorthalidone 25 mg a day. 8. Aspirin 81 mg a day. 9. Tramadol 50 mg one or two every 8 hours as needed for pain. 10. Prednisone 5 mg a day. 11. Omnicef 600 mg a day for 10 days. ALLERGIES: HYDROCODONE. DIET: Heart healthy. CODE STATUS: Full resuscitation. PENDING AT THE TIME OF DISCHARGE: Nothing. HOSPITAL COURSE: The patient was admitted through the [facility] to the [facility] with a diagnosis of cellulitis, confusion. The patient's initial laboratory 10.4 white count, followup 6.2; hemoglobin 16.0, followup 13.8; platelet count 375,000, followup 275,000. Comprehensive metabolic profile normal except for a sodium of 135. The patient had atrial fibrillation, well controlled on medicines. After examination, it was found that she most likely had senile dementia. Neurology was consulted. She was seen by Dr. Nehemias Laura, who concurred with the diagnosis. Blood cultures and urine cultures were negative. She was treated with IV Rocephin for her cellulitis, it is improved. She has been transitioned to Omnicef in discussion with family about home with home health, assisted living, etc. The final conclusion by the family was to take her home with home health. She is being discharged. PRIMARY CARE PHYSICIAN: SHELIA Deal. It is requested she see him in 7 days for followup. Job ID: [id number]
== END 2019-02-27 16:38 | disposition home or self-care (01) | DRG 602 ==
LOC: ERS 16:23 → 2NO 20:49
PROVIDERS: ADMIT Internal Medicine Nephrology; ATTEND Internal Medicine Nephrology
DX: L03.116 Cellulitis of left lower limb (principal); G93.41 Metabolic encephalopathy; I48.91 Unspecified atrial fibrillation; L03.115 Cellulitis of right lower limb; M35.3 Polymyalgia rheumatica; I10 Essential (primary) hypertension; L02.415 Cutaneous abscess of right lower limb; F03.90 Unspecified dementia, unspecified severity, without behavioral disturbance, psychotic disturbance, mood disturbance, and anxiety; Z79.82 Long term (current) use of aspirin; Z79.899 Other long term (current) drug therapy; Z90.710 Acquired absence of both cervix and uterus; Z90.89 Acquired absence of other organs; Z86.73 Personal history of transient ischemic attack (TIA), and cerebral infarction without residual deficits
CPT/HCPCS: 36415; 70450; 71045; 80048; 80053; 80202; 83605; 83735; 83880; 84443; 84484; 85025; 85652; 86140; 87040; 87086; 93005; 93306; 94760; 96361; 96365; 96367; 96375; J0360; J0696; J1650; J2543; J3370; J3490; J7050; J7512

== ENCOUNTER 2019-03-10 16:11 | Inpatient (IN) | payer MEDICARE, BC ==
[2019-03-10 16:41] LABS: #Basophils 0.1 thou/uL (0.0-0.2); #Eosinphils 0.1 thou/uL (0.0-0.7); #Lymphocytes 0.9 thou/uL (1.20-3.40); #Monocytes 0.4 thou/uL (0.11-0.59); #Neutrophils 10.5 thou/uL (1.40-6.50); %Basophils 0.4 % (0.0-1.0); %Eosinophils 0.7 % (0.0-10.0); %Lymphocytes 7.3 % (21.0-51.0); %Monocytes 3.2 % (0.0-10.0); %Neutrophils 88.4 % (42.0-75.0); Hemoglobin 13.7 g/dL (12.0-16.0); Mean Corpuscular HGB CONC 33.5 g/dL (32.0-36.0); Mean Corpuscular Hemoglobin 31.5 pg (27.0-31.0); Mean Corpuscular Volume 93.9 fL (78.0-98.0); Mean Platelet Volume 6.6 fL (7.4-10.4); Platelet Count 453 thou/uL (130-400); RBC Distribution Width 12.2 % (11.5-14.5); Red Blood Cell (RBC) Count 4.35 mill/uL (4.20-5.40); White Blood Cell (WBC) Count 11.9 thou/uL (4.8-10.8)
[2019-03-10 16:47] LABS: INR-International Normal Ratio 0.9; PTT 30.9 SEC (22.9-36.1); Prothrombin Time 12.2 SEC (12.0-14.7)
[2019-03-10 16:57] LABS: ALT (SGPT) 37 U/L (8-55); AST (SGOT) 35 U/L (5-34); Albumin 4.6 g/dL (3.4-4.8); Alkaline Phosphatase 80 U/L (40-110); Anion Gap 15 mmol/L (10-20); BUN (Urea Nitrogen) 20 mg/dL (9.8-20.1); Bilirubin, Total 0.5 mg/dL (0.2-1.2); Calc. Creatinine Clearance 0 mL/min (70-130); Calcium 9.6 mg/dL (7.8-10.44); Carbon Dioxide 25 mmol/L (23-31); Chloride 92 mmol/L (98-107); Estimated GFR-MDRD 69; Globulin 3.3 g/dL (2.4-3.5); Glucose 113 mg/dL (83-110); Potassium 4.1 mmol/L (3.5-5.1); Protein, Total 7.9 g/dL (6.0-8.3); Sodium 128 mmol/L (136-145)
--- NOTE | 2019-03-10 17:00 | RAD ---
RADIOGRAPH CHEST 1 VIEW: DATE: 03-10-19 HISTORY: 83-year-old female with chest pain and atrial fibrillation. FINDINGS: There is cardiomegaly. There is no evidence of air space density, pulmonary edema, or pneumothorax. T he lateral costophrenic angles are sharp. IMPRESSION: 1) No acute pulmonary findings. 2) Cardiomegaly without congestive heart failure. jn POS: CET
[2019-03-10] MEDS ORDERED: Acetaminophen 650 MG Suppository PR PRN (19:19)
[2019-03-10] MEDS ORDERED: Bisacodyl 5 MG TAB PO PRN (19:19)
[2019-03-10] MEDS ORDERED: hydrALAZINE 20 MG/ML VIAL SLOW IVP PRN (19:31)
--- NOTE | 2019-03-10 20:11 | HP ---
PRIMARY CARE PROVIDER: Deejay Lam MD CHIEF COMPLAINT: Low heart rate. HISTORY OF PRESENT ILLNESS: Ms. Cerna is a pleasant 83-year-old lady, who was seen at [facility] on March 10, 2019. She was hospitalized at this facility from February 22 to February 27 of this year for encephalopathy. She was found to have atrial fibrillation. Her Cardizem dose was increased from 180 mg to 240 mg daily during that hospitalization. She went to her primary care provider's office for assisted living evaluation. There, she was found to have slow heart rate. She was therefore sent to the emergency room. The patient denies any chest pain. She denies any palpitations. She denies any nausea or vomiting. She denies any abdominal pain. The patient is able to provide some history. Her son was by the bedside and was able to provide most of the history. REVIEW OF SYSTEMS: All systems were reviewed and found to be negative except for the pertinent positives mentioned above. PAST MEDICAL HISTORY: Hypertension, polymyalgia rheumatica, atrial fibrillation, senile dementia. PAST SURGICAL HISTORY: Hysterectomy, back surgery, tonsillectomy, left wrist surgery. SOCIAL HISTORY: The patient has wine with supper. She denies tobacco use or recreational drug use. ALLERGIES: HYDROCODONE. CURRENT MEDICATIONS: 1. Cardizem CD 240 mg daily. 2. Gabapentin 300 mg daily. 3. Losartan 100 mg daily. 4. Metoprolol tartrate 25 mg 2 times a day. 5. Prednisone 5 mg daily. 6. Tramadol p.r.n. 7. Movantik 25 mg daily. 8. Aspirin 81 mg daily. 9. Isosorbide dinitrate 10 mg 2 times a day. PHYSICAL EXAMINATION: GENERAL: Ms. Cerna is awake and alert, not in acute distress. VITAL SIGNS: Blood pressure is 179/65, pulse 48, respiratory rate 17, and oxygen saturation 100% on room air. She is afebrile. EYES: No scleral icterus, no conjunctival pallor. ENT: Moist mucosal membranes. No oropharyngeal erythema or exudates. NECK: Supple, nontender, trachea is midline. RESPIRATORY: Accessory muscles of breathing are not active. Chest wall movements are symmetric bilaterally. Lungs are clear to auscultation, without wheeze, rhonchi, or crepitations. CARDIOVASCULAR: S1 and S2 are heard, bradycardic. Peripheral pulses are palpable. ABDOMEN: Soft, nontender, bowel sounds are heard. NEUROLOGIC: Cranial nerves 2 through 12 are intact. MUSCULOSKELETAL: Power is 5/5 in all 4 extremities. SKIN: Mild erythema over the right roberts. No increase in warmth. Mildly tender. LYMPHATIC: No cervical lymphadenopathy. PSYCHIATRIC: Normal mood, normal affect, the patient is oriented to person, place, but not to time. LABORATORY DATA: Ms. Cerna's labs and investigations were reviewed. I reviewed her electrocardiogram, which shows sinus bradycardia with a ventricular rate of 50 beats per minute. She also had an electrocardiogram done at primary care provider's office, which showed a heart rate of 43. I also reviewed her chest x-ray, which does not show any pulmonary infiltrates. She has cardiomegaly. She has leukocytosis with 11,900 white cells, of which 88.4% are neutrophils, normal hemoglobin, elevated platelet count of 453,000, it was 275,000 on February 23, 2019, INR 0.9, decreased sodium of 128, sodium was 136 on February 24, 2019, normal potassium and normal creatinine. AST is mildly elevated at 35, otherwise LFTs are unremarkable. Troponin I is normal. ASSESSMENT AND PLAN: Ms. Cerna is a pleasant 83-year-old lady, who was seen at [facility] on March 10, 2019. Her problem list includes: 1. Bradycardia: Ms. Cerna is presenting with bradycardia in the context of calcium channel jose miguel use. Cardizem will be held. She will be admitted to inside polisher. Cardiology service will be consulted for opinion and help with management. 2. Hyponatremia: The patient appears to be asymptomatic from hyponatremia. We will recheck sodium level and reassess. 3. Atrial fibrillation: The patient has a history of atrial fibrillation. It is unclear why she is not on anticoagulation. Family reports that the patient is wheelchair bound. We will await cardiology service's opinion. 4. Polymyalgia rheumatica: Continue prednisone. 5. Hypertension: Continue losartan and isosorbide dinitrate. Many thanks for allowing me to participate in your patient's care. Please feel free to contact me with any questions or concerns. LEVEL OF RISK: High. LEVEL OF COMPLEXITY: High. Job ID: [id number]
[2019-03-10] MEDS: Isosorbide Dinitrate 5 MG TAB PO SCH (22:40)
[2019-03-11] MEDS: Acetaminophen 325 MG TAB PO PRN ×2 (02:09→11:28)
[2019-03-11 04:57] LABS: #Basophils 0.1 thou/uL (0.0-0.2); #Eosinphils 0.2 thou/uL (0.0-0.7); #Lymphocytes 1.8 thou/uL (1.20-3.40); #Monocytes 0.6 thou/uL (0.11-0.59); %Basophils 0.7 % (0.0-1.0); %Eosinophils 2.8 % (0.0-10.0); %Lymphocytes 23.7 % (21.0-51.0); %Monocytes 7.9 % (0.0-10.0); %Neutrophils 64.9 % (42.0-75.0); Hemoglobin 11.7 g/dL (12.0-16.0); Mean Corpuscular HGB CONC 33.7 g/dL (32.0-36.0); Mean Corpuscular Hemoglobin 31.6 pg (27.0-31.0); Mean Corpuscular Volume 93.7 fL (78.0-98.0); Mean Platelet Volume 6.6 fL (7.4-10.4); Platelet Count 376 thou/uL (130-400); White Blood Cell (WBC) Count 7.7 thou/uL (4.8-10.8)
[2019-03-11 05:26] LABS: Anion Gap 12 mmol/L (10-20); BUN (Urea Nitrogen) 16 mg/dL (9.8-20.1); Calc. Creatinine Clearance 47 mL/min (70-130); Calcium 8.6 mg/dL (7.8-10.44); Carbon Dioxide 26 mmol/L (23-31); Chloride 94 mmol/L (98-107); Estimated GFR-MDRD 88; Glucose 84 mg/dL (83-110); Potassium 3.7 mmol/L (3.5-5.1); Sodium 128 mmol/L (136-145)
[2019-03-11] MEDS ORDERED: Enalaprilat Dihydrate 1.25 MG/ML VIAL SLOW IVP PRN ×2 (09:04→09:15)
[2019-03-11] MEDS: Enoxaparin Sodium 40 MG/0.4 ML SYRINGE SC SCH (09:36)
[2019-03-11] MEDS: Aspirin 81 mg Enteric Coated Tablet PO SCH (09:36)
[2019-03-11] MEDS: Gabapentin 300 MG CAP PO SCH (09:36)
[2019-03-11] MEDS: Isosorbide Dinitrate 5 MG TAB PO SCH ×2 (09:37→20:13)
[2019-03-11] MEDS: Losartan 25 MG TAB PO SCH (09:37)
[2019-03-11] MEDS: predniSONE 5 MG TAB PO SCH (09:37)
[2019-03-11] MEDS: hydrALAZINE 20 MG/ML VIAL SLOW IVP PRN ×2 (09:46→15:54)
[2019-03-11] MEDS ORDERED: traMADol HCl 50 MG TAB PO PRN (13:41)
--- NOTE | 2019-03-11 13:45 | PDOC.HOSPP ---
- Subjective Encounter Date: 03/11/19 Encounter Time: 13:44 Subjective: Pt seen for followup re: bradycardia. Says she feels okay. - Objective Vital Signs & Weight: Vital Signs (12 hours) Temp Pulse Resp BP BP Pulse Ox 03/11/19 11:31 98.3 F 64 18 155/70 H 96 03/11/19 09:46 59 L 191/77 H 03/11/19 07:38 98.8 F 56 L 16 190/84 H 97 03/11/19 03:00 98.0 F 45 L 16 179/100 H 96 Weight Weight 102 lb 5 oz Result Diagrams: 03/11/19 04:17 03/11/19 04:17 Additional Labs: Labs and MARs reviewed by me EKG Reviewed by me: Yes (Tele: sinus bradycardia) Hospitalist ROS - Review of Systems Cardiovascular: denies: chest pain, palpitations, orthopnea, paroxysmal noc. dyspnea, edema, light headedness Gastrointestinal: denies: nausea, vomiting, abdominal pain, diarrhea, constipation, melena, hematochezia - Medication Medications: Active Medications Generic Name Dose Route Start Last Admin Trade Name Freq PRN Reason Stop Dose Admin Acetaminophen 650 mg 03/10/19 19:19 03/11/19 11:28 Tylenol PO 650 mg Q4H PRN Administration Headache/Fever/Mild Pain (1-3) Aspirin 81 mg 03/11/19 09:00 03/11/19 09:36 Ecotrin PO Not Given DAILY ALIZA Enoxaparin Sodium 40 mg 03/11/19 09:00 03/11/19 09:36 Lovenox SC Not Given 0900 ALIZA Gabapentin 300 mg 03/11/19 09:00 03/11/19 09:36 Neurontin PO 300 mg DAILY ALIZA Administration Hydralazine HCl 10 mg 03/11/19 09:03 03/11/19 09:46 Apresoline SLOW IVP 10 mg Q6H PRN Administration SBP Greater Than 170 Isosorbide Dinitrate 10 mg 03/10/19 21:00 03/11/19 09:37 Isordil PO 10 mg BID ALIZA Administration Losartan Potassium 100 mg 03/11/19 09:00 03/11/19 09:37 Cozaar PO 100 mg DAILY ALIZA Administration Prednisone 5 mg 03/11/19 09:00 03/11/19 09:37 Prednisone PO 5 mg DAILY ALIZA Administration - Exam General Appearance: awake alert Eye: anicteric sclera ENT: moist mucosa Neck: supple Heart: RRR, no rubs Respiratory: CTAB Gastrointestinal: soft, non-tender Skin: no rashes Neurological: no focal deficits Psychiatric: normal affect, normal behavior Hosp A/P (1) Sinus bradycardia Code(s): R00.1 - BRADYCARDIA, UNSPECIFIED Status: Acute (2) Hyponatremia Code(s): E87.1 - HYPO-OSMOLALITY AND HYPONATREMIA Status: Acute (3) HTN (hypertension) Code(s): I10 - ESSENTIAL (PRIMARY) HYPERTENSION Status: Chronic Qualifiers: Hypertension type: essential hypertension Qualified Code(s): I10 - Essential (primary) hypertension (4) Dementia Code(s): F03.90 - UNSPECIFIED DEMENTIA WITHOUT BEHAVIORAL DISTURBANCE Status: Chronic Qualifiers: Dementia type: unspecified type Dementia behavioral disturbance: without behavioral disturbance Qualified Code(s): F03.90 - Unspecified dementia without behavioral disturbance (5) Polymyalgia rheumatica Code(s): M35.3 - POLYMYALGIA RHEUMATICA Status: Chronic - Plan out of bed/ambulate, DVT proph w/lovenox Await EP service input. Pt had sinus pauses, continue to monitor. Continue prednisone for PMR. PRN Toradol for pain.
[2019-03-11] MEDS ORDERED: Methotrexate Sodium 2.5 MG TAB PO SCH (14:00)
[2019-03-11] MEDS: Ketorolac Tromethamine 30 MG/ML VIAL IVP PRN (14:37)
[2019-03-12] MEDS: hydrALAZINE 20 MG/ML VIAL SLOW IVP PRN ×2 (03:38→16:22)
[2019-03-12 04:35] LABS: #Basophils 0.1 thou/uL (0.0-0.2); #Eosinphils 0.1 thou/uL (0.0-0.7); #Lymphocytes 1.2 thou/uL (1.20-3.40); #Monocytes 0.8 thou/uL (0.11-0.59); #Neutrophils 6.2 thou/uL (1.40-6.50); %Basophils 0.7 % (0.0-1.0); %Eosinophils 1.3 % (0.0-10.0); %Lymphocytes 14.7 % (21.0-51.0); %Monocytes 8.9 % (0.0-10.0); %Neutrophils 74.4 % (42.0-75.0); Hemoglobin 13.3 g/dL (12.0-16.0); Mean Corpuscular HGB CONC 34.3 g/dL (32.0-36.0); Mean Corpuscular Hemoglobin 31.7 pg (27.0-31.0); Mean Corpuscular Volume 92.5 fL (78.0-98.0); Mean Platelet Volume 6.2 fL (7.4-10.4); Platelet Count 390 thou/uL (130-400); RBC Distribution Width 11.9 % (11.5-14.5); Red Blood Cell (RBC) Count 4.18 mill/uL (4.20-5.40); White Blood Cell (WBC) Count 8.4 thou/uL (4.8-10.8)
[2019-03-12] MEDS: Ketorolac Tromethamine 30 MG/ML VIAL IVP PRN ×2 (04:45→17:40)
[2019-03-12 04:56] LABS: Anion Gap 12 mmol/L (10-20); BUN (Urea Nitrogen) 17 mg/dL (9.8-20.1); Calc. Creatinine Clearance 44 mL/min (70-130); Calcium 8.4 mg/dL (7.8-10.44); Carbon Dioxide 23 mmol/L (23-31); Chloride 95 mmol/L (98-107); Estimated GFR-MDRD 81; Glucose 88 mg/dL (83-110); Potassium 3.3 mmol/L (3.5-5.1); Sodium 127 mmol/L (136-145)
[2019-03-12] MEDS: Enoxaparin Sodium 40 MG/0.4 ML SYRINGE SC SCH (08:08)
[2019-03-12] MEDS: Isosorbide Dinitrate 5 MG TAB PO SCH ×2 (08:08→20:36)
[2019-03-12] MEDS: Losartan 25 MG TAB PO SCH (08:08)
[2019-03-12] MEDS: predniSONE 5 MG TAB PO SCH (08:09)
[2019-03-12] MEDS: Aspirin 81 mg Enteric Coated Tablet PO SCH (08:09)
[2019-03-12] MEDS: Gabapentin 300 MG CAP PO SCH (08:09)
--- NOTE | 2019-03-12 13:05 | PDOC.HOSPP ---
- Subjective Encounter Date: 03/12/19 Encounter Time: 07:20 Subjective: Pt seen for followup re: hyponatremia. Feels well, no complaints. - Objective Vital Signs & Weight: Vital Signs (12 hours) Temp Pulse Resp BP BP Pulse Ox 03/12/19 11:25 99 F 82 16 130/62 95 03/12/19 07:15 98.3 F 71 16 174/76 H 97 03/12/19 04:00 98.5 F 61 20 207/84 H 97 03/12/19 03:38 61 207/84 H Weight Admit Weight 102 lb 5 oz Weight 102 lb 5 oz I&O: 03/11/19 03/12/19 03/13/19 06:59 06:59 06:59 Intake Total 480 Balance 480 Result Diagrams: 03/12/19 04:21 03/12/19 04:21 Additional Labs: labs and MARs reviewed by me EKG Reviewed by me: Yes (Tele: NSR) Hospitalist ROS - Review of Systems Cardiovascular: denies: chest pain, palpitations, orthopnea, paroxysmal noc. dyspnea, edema, light headedness Gastrointestinal: denies: nausea, vomiting, abdominal pain, diarrhea, constipation, melena, hematochezia - Medication Medications: Active Medications Generic Name Dose Route Start Last Admin Trade Name Freq PRN Reason Stop Dose Admin Acetaminophen 650 mg 03/10/19 19:19 03/11/19 11:28 Tylenol PO 650 mg Q4H PRN Administration Headache/Fever/Mild Pain (1-3) Aspirin 81 mg 03/11/19 09:00 03/12/19 08:09 Ecotrin PO 81 mg DAILY ALIZA Administration Enoxaparin Sodium 40 mg 03/11/19 09:00 03/12/19 08:08 Lovenox SC 40 mg 0900 ALIZA Administration Gabapentin 300 mg 03/11/19 09:00 03/12/19 08:09 Neurontin PO 300 mg DAILY ALIZA Administration Hydralazine HCl 10 mg 03/11/19 09:03 03/12/19 03:38 Apresoline SLOW IVP 10 mg Q6H PRN Administration SBP Greater Than 170 Isosorbide Dinitrate 10 mg 03/10/19 21:00 03/12/19 08:08 Isordil PO 10 mg BID ALIZA Administration Ketorolac Tromethamine 15 mg 03/11/19 13:48 03/12/19 04:45 Toradol IVP 03/16/19 13:49 15 mg Q8H PRN Administration Pain Losartan Potassium 100 mg 03/11/19 09:00 03/12/19 08:08 Cozaar PO 100 mg DAILY ALIZA Administration Methotrexate Sodium 20 mg 03/11/19 14:00 03/11/19 16:13 Methotrexate Sodium PO 20 mg Q7D ALIZA Administration Miscellaneous Medication 25 mg 03/12/19 09:00 03/12/19 08:09 Movantik PO 25 mg DAILY ALIZA Administration Prednisone 5 mg 03/11/19 09:00 03/12/19 08:09 Prednisone PO 5 mg DAILY ALIZA Administration Sodium Chloride 10 ml 03/11/19 21:00 03/12/19 08:09 Flush - Normal Saline IVF 10 ml Q12HR ALIZA Administration - Exam General Appearance: NAD Eye: anicteric sclera ENT: moist mucosa Neck: supple Heart: RRR Respiratory: CTAB Gastrointestinal: soft, non-tender Extremities: no cyanosis Neurological: no weakness Psychiatric: normal affect, normal behavior Hosp A/P (1) Hyponatremia Code(s): E87.1 - HYPO-OSMOLALITY AND HYPONATREMIA Status: Acute (2) HTN (hypertension) Code(s): I10 - ESSENTIAL (PRIMARY) HYPERTENSION Status: Chronic Qualifiers: Hypertension type: essential hypertension Qualified Code(s): I10 - Essential (primary) hypertension (3) Dementia Code(s): F03.90 - UNSPECIFIED DEMENTIA WITHOUT BEHAVIORAL DISTURBANCE Status: Chronic Qualifiers: Dementia type: unspecified type Dementia behavioral disturbance: without behavioral disturbance Qualified Code(s): F03.90 - Unspecified dementia without behavioral disturbance (4) Polymyalgia rheumatica Code(s): M35.3 - POLYMYALGIA RHEUMATICA Status: Chronic (5) Sinus bradycardia Code(s): R00.1 - BRADYCARDIA, UNSPECIFIED Status: Resolved - Plan out of bed/ambulate Cardizem is on hold, heart rate improved. Continue prednisone for PMR. PRN Toradol for pain. Pt improving clinically.
[2019-03-12] MEDS ORDERED: Potassium Chloride 20 MEQ TAB PO SCH (13:15)
--- NOTE | 2019-03-12 13:46 | PDOC.CPN ---
- Subjective Date: 03/12/19 Time: 13:43 Interval history: EP PROGRESS NOTE: 03/12/19 resting in bed. Denies heart racing, palpitations, cehst pain, pressure, passing out. + frequent bowel movements . - Review of Systems General: denies: fever/chills, weight/appetite/sleep changes, night sweats, fatigue Respiratory: denies: cough, congestion, shortness of breath, exercise intolerance Cardiovascular: denies: chest pain, palpitation, edema, paroxysmal nocturnal dyspnea, orthopnea Gastrointestinal: denies: nausea, vomiting, constipation Musculoskeletal: reports: pain, arthritis/arthralgias. denies: tenderness, stiffness Neurological: reports: weakness. denies: numbness, syncope, seizure - Objective Allergies/Adverse Reactions: Allergies Allergy/AdvReac Type Severity Reaction Status Date / Time hydrocodone Allergy Unknown Rash Verified 02/23/19 04:21 Visit Medications: Current Medications Acetaminophen (Tylenol) 650 mg PO Q4H PRN PRN Reason: Headache/Fever/Mild Pain (1-3) Last Admin: 03/11/19 11:28 Dose: 650 mg Acetaminophen (Tylenol) 650 mg CO Q4H PRN PRN Reason: Headache/Fever/Mild Pain (1-3) Aspirin (Ecotrin) 81 mg PO DAILY [facility] Last Admin: 03/12/19 08:09 Dose: 81 mg Bisacodyl (Dulcolax) 10 mg PO DAILYPRN PRN PRN Reason: Constipation Enalaprilat (Vasotec) 1.25 mg SLOW IVP Q6H PRN PRN Reason: SBP Greater Than 170 Enoxaparin Sodium (Lovenox) 40 mg SC 0900 [facility] Last Admin: 03/12/19 08:08 Dose: 40 mg Gabapentin (Neurontin) 300 mg PO DAILY [facility] Last Admin: 03/12/19 08:09 Dose: 300 mg Hydralazine HCl (Apresoline) 10 mg SLOW IVP Q6H PRN PRN Reason: SBP Greater Than 170 Last Admin: 03/12/19 03:38 Dose: 10 mg Isosorbide Dinitrate (Isordil) 10 mg PO BID [facility] Last Admin: 03/12/19 08:08 Dose: 10 mg Ketorolac Tromethamine (Toradol) 15 mg IVP Q8H PRN PRN Reason: Pain Stop: 03/16/19 13:49 Last Admin: 03/12/19 04:45 Dose: 15 mg Losartan Potassium (Cozaar) 100 mg PO DAILY [facility] Last Admin: 03/12/19 08:08 Dose: 100 mg Methotrexate Sodium (Methotrexate Sodium) 20 mg PO Q7D [facility] Last Admin: 03/11/19 16:13 Dose: 20 mg Miscellaneous Medication (Movantik) 25 mg PO DAILY [facility] Last Admin: 03/12/19 08:09 Dose: 25 mg Potassium Chloride (K-Dur) 40 meq PO NOW [facility] Stop: 03/12/19 15:15 Prednisone (Prednisone) 5 mg PO DAILY [facility] Last Admin: 03/12/19 08:09 Dose: 5 mg Sodium Chloride (Flush - Normal Saline) 10 ml IVF Q12HR [facility] Last Admin: 03/12/19 08:09 Dose: 10 ml Sodium Chloride (Flush - Normal Saline) 10 ml IVF PRN PRN PRN Reason: Saline Flush Vital Signs & Weight: Vital Signs Temp Pulse Resp BP BP Pulse Ox 03/12/19 11:25 99 F 82 16 130/62 95 03/12/19 07:15 98.3 F 71 16 174/76 H 97 03/12/19 04:00 98.5 F 61 20 207/84 H 97 03/12/19 03:38 61 207/84 H Admit Weight 102 lb 5 oz Weight 102 lb 5 oz - Physical Exam General: appears well, no apparent distress HEENT: mucus membranes moist, normocephaly, PERRL Neck: supple neck, midline trachea, no JVD/HJR Cardiac: regular rate and rhythm, no murmur, regular rate Lungs: clear to auscultation, normal breath sounds, normal exam Neuro: cranial nerve 2-12 intact, no lateralizing findings Abdomen: unremarkable, active bowel sounds, soft, non-tender Extremities: no cyanosis, no clubbing, no edema - Labs Result Diagrams: 03/12/19 04:21 03/12/19 04:21 Troponin/CKMB Troponin I Less than 0.010 ng/mL (< 0.028) 03/10/19 10:30 - Telemetry Sinus rhythms and dysrhythmias: sinus rhythm - Assessment/Plan Assessment/Plan: 1. Bradycardia -EKG with HR 43 by PCM with concurrent diltiazem CD 240mg QD and metoprolol tartrate 25mg BID. 2. Atrial fibrillation -parosyxmal -CCB and BB for rate control during episodes, some concern for tachy-sonia syndrome 3. CHADS2-VAC: >/=3 (gender, advanced age) - no OAC currently although it is indicated by score above. - high risk for bleeding complications but she is largely WC bound. No family bedside to discuss OAC. - recommend considering Eliquis 2.5mg PO BID if family is agreeable to this. HR stable since admission. No AF, no sonia or pauses. Will restart low dose rate control. Tadeo STYLES has interaction with her movantik. Will use Toprol for now. Monitor overnight, if HR remains stable she can likely DC tomorrow. There is no definite indication for PPM at this time and she was not interested in a pacemaker today during our discussion. Recommend safe medication practices at home as this may be the result of taking medications incorrectly. Blister pack meds from home pharmacy or home health to give meds could help prevent future issues like this.
--- NOTE | 2019-03-12 18:22 | CON ---
DATE OF CONSULTATION: 03/11/2019 PRIMARY CARE PROVIDER: Deejay Lam MD REASON FOR CONSULTATION: Bradycardia. HISTORY OF PRESENT ILLNESS: Ms. Cerna is an 83-year-old woman admitted to [facility] on March 10, after being evaluated at her primary care provider's office. She was found to have a slow heart rate at approximately 43 beats per minute, was sent to the emergency room for further evaluation. She has a diagnosis of paroxysmal atrial fibrillation and is on AV billy blocking agents for rate control during her paroxysmal episodes. Her Cardizem dose was recently increased from 180 mg daily to 240 mg daily during hospitalization in late February of this year. She is also on metoprolol tartrate 25 mg p.o. b.i.d. She has a substantial dementia and is pleasantly disoriented. She does live in an assisted living center, although it is unclear if she manages her own medications. She is a very questionable historian at best. Her son was able to provide some history. They do not feel that she has been having syncopal episodes, but it is possible that she had taken an extra dose of her medications or possibly was confused if she had taken her medications that day. Ms. Cerna currently denies any heart racing, palpitations, chest pain, pressure , syncope, near syncope, stroke, or stroke-like symptoms. REVIEW OF SYSTEMS: A 12-point review of systems is negative except that listed above in HPI above. PAST MEDICAL HISTORY: 1. Hypertension. 2. Polymyalgia rheumatica. 3. Paroxysmal atrial fibrillation. 4. Senile dementia. PAST SURGICAL HISTORY: Hysterectomy, back surgery, tonsillectomy, and left wrist surgery. SOCIAL HISTORY: Lives at a facility significant dementia. Denies tobacco or drug use, but does have wine with her dinner. FAMILY HISTORY: Noncontributory to the best of her son's recollection. ALLERGIES: HYDROCODONE. CURRENT MEDICATIONS: 1. Cardizem CD 240 mg daily. 2. Gabapentin 300 mg daily. 3. Losartan 100 mg daily. 4. Metoprolol tartrate 25 mg b.i.d. 5. Prednisone 5 mg daily. 6. Tramadol as needed. 7. Movantik 25 mg daily. 8. Aspirin 81 mg daily. 9. Imdur 10 mg b.i.d. OBJECTIVE: VITAL SIGNS: Temperature 98.8, pulse 64, blood pressure 155/70, respirations 18, and oxygen is 96% on room air. GENERAL: The patient is alert. She is oriented to name and that she is in the hospital, but otherwise is disoriented. She is in no apparent distress. NECK: Supple without jugular venous distention. LUNGS: Clear to auscultation bilaterally. HEART: Rate is irregularly irregular with crisp S1 and S2. PMI is nondisplaced. ABDOMEN: Soft and nondistended. EXTREMITIES: Warm and dry to touch without clubbing, cyanosis, or edema. NEUROLOGIC: Grossly intact. No localized findings. Cranial nerves 2 through 12 were grossly intact. Gait was not assessed. LABORATORY DATA: Hematology was unremarkable. Chemistry; sodium is 128, potassium 3.7, and creatinine 0.64. ALT and AST are within normal limits. Troponin is negative. Telemetry and EKGs were all personally reviewed and currently reflect sinus rhythm with occasional very mild bradycardia in the high 50s range. No severe bradycardia or advanced AV blocks are seen. No tachycardia or atrial fibrillation episodes are captured. IMPRESSION: 1. Bradycardia, asymptomatic, with concurrent calcium channel jose miguel and beta-jose miguel therapy. 2. Senile dementia. 3. Paroxysmal atrial fibrillation. 4. CHADS-VASc score of greater than or equal to 4 on the basis of advanced age, female gender, and hypertension, not currently on oral anticoagulation noted as indicated by the score above. PLAN AND RECOMMENDATIONS: At this point, there is no emergent or absolute indication for pacemaker therapy. Her AV billy blocking agents have been discontinued and we will continue to monitor her on telemetry. If no further bradycardic episodes are seen and her heart rate remains stable off her diltiazem and metoprolol, we could gradually add one of these agents back. She may be struggling with some tachy-sonia issues, but at this time, the patient voices she would wish to refrain from a pacemaker unless absolutely necessary. I think it is also possible that if she is managing her own medications at home, it is likely that there was a medication error, where she could have doubled down on some of her medications. We will continue to monitor her. If no bradycardia or pauses are seen overnight, we will restart low-dose rate control regimen tomorrow. On the other hand if further sonia episodes or pause over 3 seconds are seen on the reduced negative chronotropic agents, permanent pacemaker may still be needed. Thank you for allowing me to participate in the care of this patient. We will continue to follow. Job ID: [id number] MTDD
[2019-03-12] MEDS: Metoprolol Tartrate 25 MG TAB PO SCH (20:36)
[2019-03-13 05:05] LABS: #Basophils 0.1 thou/uL (0.0-0.2); #Eosinphils 0.1 thou/uL (0.0-0.7); #Lymphocytes 1.3 thou/uL (1.20-3.40); #Monocytes 0.7 thou/uL (0.11-0.59); #Neutrophils 5.1 thou/uL (1.40-6.50); %Basophils 0.9 % (0.0-1.0); %Lymphocytes 18.3 % (21.0-51.0); %Monocytes 9.2 % (0.0-10.0); %Neutrophils 69.6 % (42.0-75.0); Hemoglobin 12.3 g/dL (12.0-16.0); Mean Corpuscular HGB CONC 34.2 g/dL (32.0-36.0); Mean Corpuscular Hemoglobin 31.8 pg (27.0-31.0); Mean Corpuscular Volume 92.9 fL (78.0-98.0); Mean Platelet Volume 6.4 fL (7.4-10.4); Platelet Count 365 thou/uL (130-400); RBC Distribution Width 12.1 % (11.5-14.5); Red Blood Cell (RBC) Count 3.88 mill/uL (4.20-5.40); White Blood Cell (WBC) Count 7.3 thou/uL (4.8-10.8)
[2019-03-13 05:26] LABS: Anion Gap 12 mmol/L (10-20); BUN (Urea Nitrogen) 22 mg/dL (9.8-20.1); Calc. Creatinine Clearance 43 mL/min (70-130); Calcium 8.2 mg/dL (7.8-10.44); Carbon Dioxide 21 mmol/L (23-31); Chloride 94 mmol/L (98-107); Estimated GFR-MDRD 80; Glucose 84 mg/dL (83-110); Sodium 123 mmol/L (136-145)
[2019-03-13 06:13] VITALS: BMI 18.0
--- NOTE | 2019-03-13 08:24 | PDOC.CPN ---
- Subjective Date: 03/13/19 Time: 08:24 Interval history: EP PROGRESS NOTE: 03/13/19 resting in bed. Denies heart racing, palpitations, chest pain, pressure, passing out. - Review of Systems General: denies: fever/chills, weight/appetite/sleep changes, night sweats, fatigue Respiratory: denies: cough, congestion, shortness of breath, exercise intolerance Cardiovascular: denies: chest pain, palpitation, edema, paroxysmal nocturnal dyspnea, orthopnea Gastrointestinal: denies: nausea, vomiting, diarrhea, constipation, abd pain, GI bleeding Musculoskeletal: denies: pain, tenderness, stiffness, swelling, arthritis/ arthralgias Neurological: denies: numbness, syncope, seizure, weakness - Objective Allergies/Adverse Reactions: Allergies Allergy/AdvReac Type Severity Reaction Status Date / Time hydrocodone Allergy Unknown Rash Verified 02/23/19 04:21 Visit Medications: Current Medications Acetaminophen (Tylenol) 650 mg PO Q4H PRN PRN Reason: Headache/Fever/Mild Pain (1-3) Last Admin: 03/11/19 11:28 Dose: 650 mg Acetaminophen (Tylenol) 650 mg TN Q4H PRN PRN Reason: Headache/Fever/Mild Pain (1-3) Aspirin (Ecotrin) 81 mg PO DAILY [facility] Last Admin: 03/12/19 08:09 Dose: 81 mg Bisacodyl (Dulcolax) 10 mg PO DAILYPRN PRN PRN Reason: Constipation Enalaprilat (Vasotec) 1.25 mg SLOW IVP Q6H PRN PRN Reason: SBP Greater Than 170 Enoxaparin Sodium (Lovenox) 40 mg SC 0900 [facility] Last Admin: 03/12/19 08:08 Dose: 40 mg Gabapentin (Neurontin) 300 mg PO DAILY [facility] Last Admin: 03/12/19 08:09 Dose: 300 mg Hydralazine HCl (Apresoline) 10 mg SLOW IVP Q6H PRN PRN Reason: SBP Greater Than 170 Last Admin: 03/12/19 16:22 Dose: 10 mg Isosorbide Dinitrate (Isordil) 10 mg PO BID [facility] Last Admin: 03/12/19 20:36 Dose: 10 mg Ketorolac Tromethamine (Toradol) 15 mg IVP Q8H PRN PRN Reason: Pain Stop: 03/16/19 13:49 Last Admin: 03/12/19 17:40 Dose: 15 mg Losartan Potassium (Cozaar) 100 mg PO DAILY [facility] Last Admin: 03/12/19 08:08 Dose: 100 mg Methotrexate Sodium (Methotrexate Sodium) 20 mg PO Q7D [facility] Last Admin: 03/11/19 16:13 Dose: 20 mg Metoprolol Tartrate (Lopressor) 25 mg PO BID [facility] Last Admin: 03/12/19 20:36 Dose: 25 mg Miscellaneous Medication (Movantik) 25 mg PO DAILY [facility] Last Admin: 03/12/19 08:09 Dose: 25 mg Prednisone (Prednisone) 5 mg PO DAILY [facility] Last Admin: 03/12/19 08:09 Dose: 5 mg Sodium Chloride (Flush - Normal Saline) 10 ml IVF Q12HR [facility] Last Admin: 03/12/19 20:36 Dose: 10 ml Sodium Chloride (Flush - Normal Saline) 10 ml IVF PRN PRN PRN Reason: Saline Flush Vital Signs & Weight: Vital Signs Temp Pulse Resp BP Pulse Ox 03/13/19 04:00 98.1 F 58 L 18 161/69 H 96 03/13/19 00:00 97 03/12/19 23:10 97.9 F 54 L 20 161/77 H 97 Admit Weight 102 lb 5 oz Weight 108 lb 4.8 oz - Physical Exam General: appears well, no apparent distress HEENT: mucus membranes moist, normocephaly Neck: supple neck, midline trachea, no JVD/HJR, no masses, no bruit, no lymphadenopathy, no thromegaly Cardiac: regular rate and rhythm, no murmur, regular rate, regular rhythm Lungs: clear to auscultation, normal breath sounds, normal exam, no wheeze, rales, rhonchi Neuro: cranial nerve 2-12 intact, grossly intact, no lateralizing findings Abdomen: unremarkable, active bowel sounds, non-tender, no masses Extremities: no cyanosis, no clubbing, no edema - Labs Result Diagrams: 03/13/19 04:27 03/13/19 04:27 Troponin/CKMB Troponin I Less than 0.010 ng/mL (< 0.028) 03/10/19 10:30 - Telemetry Sinus rhythms and dysrhythmias: sinus rhythm - Assessment/Plan Assessment/Plan: 1. Bradycardia -EKG with HR 43 by PCM with concurrent diltiazem CD 240mg QD and metoprolol tartrate 25mg BID. 2. Atrial fibrillation -parosyxmal -CCB and BB for rate control during episodes, some concern for tachy-sonia syndrome 3. CHADS2-VAC: >/=3 (gender, advanced age) - no OAC currently although it is indicated by score above. - she is largely WC bound. No family bedside to discuss OAC. - recommend Eliquis 2.5mg PO BID if family is agreeable to this. HR stable since admission. No AF, no sonia or pauses. Resumed low dose metoprolol tartrate 25mg PO BID. HR 50s over HS. no pauses. Tadeo STYLES has interaction with her movantik. There is no definite indication for PPM at this time and she was not interested in a pacemaker. OK for DC by EP
[2019-03-13] MEDS: Gabapentin 300 MG CAP PO SCH (09:33)
[2019-03-13] MEDS: Losartan 25 MG TAB PO SCH (09:33)
[2019-03-13] MEDS: Isosorbide Dinitrate 5 MG TAB PO SCH ×2 (09:33→20:38)
[2019-03-13] MEDS: predniSONE 5 MG TAB PO SCH (09:34)
[2019-03-13] MEDS: Aspirin 81 mg Enteric Coated Tablet PO SCH (09:34)
[2019-03-13] MEDS: Metoprolol Tartrate 25 MG TAB PO SCH (09:34)
[2019-03-13] MEDS: Enoxaparin Sodium 40 MG/0.4 ML SYRINGE SC SCH (09:34)
[2019-03-13 12:54] LABS: #Basophils 0.1 thou/uL (0.0-0.2); #Lymphocytes 0.7 thou/uL (1.20-3.40); #Monocytes 0.4 thou/uL (0.11-0.59); #Neutrophils 12.2 thou/uL (1.40-6.50); %Basophils 0.5 % (0.0-1.0); %Eosinophils 0.3 % (0.0-10.0); %Lymphocytes 4.8 % (21.0-51.0); %Neutrophils 91.3 % (42.0-75.0); Hemoglobin 13.7 g/dL (12.0-16.0); Mean Corpuscular HGB CONC 33.8 g/dL (32.0-36.0); Mean Corpuscular Hemoglobin 31.6 pg (27.0-31.0); Mean Corpuscular Volume 93.4 fL (78.0-98.0); Mean Platelet Volume 6.3 fL (7.4-10.4); Platelet Count 435 thou/uL (130-400); RBC Distribution Width 12.1 % (11.5-14.5); Red Blood Cell (RBC) Count 4.34 mill/uL (4.20-5.40); White Blood Cell (WBC) Count 13.4 thou/uL (4.8-10.8)
[2019-03-13 13:18] LABS: Anion Gap 11 mmol/L (10-20); BUN (Urea Nitrogen) 19 mg/dL (9.8-20.1); Calc. Creatinine Clearance 44 mL/min (70-130); Calcium 8.9 mg/dL (7.8-10.44); Carbon Dioxide 25 mmol/L (23-31); Chloride 91 mmol/L (98-107); Estimated GFR-MDRD 77; Glucose 107 mg/dL (83-110); Potassium 4.2 mmol/L (3.5-5.1); Sodium 123 mmol/L (136-145)
--- NOTE | 2019-03-13 14:59 | PDOC.HOSPP ---
- Subjective Encounter Date: 03/13/19 Encounter Time: 07:20 Subjective: Pt seen for followup re: hyponatremia. Feels well. Denies any complaints. - Objective Vital Signs & Weight: Vital Signs (12 hours) Temp Pulse Resp BP Pulse Ox 03/13/19 11:49 98.2 F 60 16 159/74 H 97 03/13/19 08:00 99.0 F 67 16 201/91 H 96 03/13/19 04:00 98.1 F 58 L 18 161/69 H 96 Weight Admit Weight 102 lb 5 oz Weight 108 lb 4.8 oz I&O: 03/12/19 03/13/19 03/14/19 06:59 06:59 06:59 Intake Total 480 1530 Output Total 400 Balance 480 1130 Result Diagrams: 03/13/19 12:33 03/13/19 12:33 Additional Labs: Labs and MARs reviewed by me EKG Reviewed by me: Yes (Tele; sinus pauses) Hospitalist ROS - Review of Systems Constitutional: denies: fever, chills, sweats, weakness, malaise Cardiovascular: denies: chest pain, palpitations, orthopnea, paroxysmal noc. dyspnea, edema, light headedness - Medication Medications: Active Medications Generic Name Dose Route Start Last Admin Trade Name Freq PRN Reason Stop Dose Admin Acetaminophen 650 mg 03/10/19 19:19 03/11/19 11:28 Tylenol PO 650 mg Q4H PRN Administration Headache/Fever/Mild Pain (1-3) Aspirin 81 mg 03/11/19 09:00 03/13/19 09:34 Ecotrin PO 81 mg DAILY ALIZA Administration Enoxaparin Sodium 40 mg 03/11/19 09:00 03/13/19 09:34 Lovenox SC 40 mg 0900 ALIZA Administration Gabapentin 300 mg 03/11/19 09:00 03/13/19 09:33 Neurontin PO 300 mg DAILY ALIZA Administration Hydralazine HCl 10 mg 03/11/19 09:03 03/12/19 16:22 Apresoline SLOW IVP 10 mg Q6H PRN Administration SBP Greater Than 170 Isosorbide Dinitrate 10 mg 03/10/19 21:00 03/13/19 09:33 Isordil PO 10 mg BID ALIZA Administration Ketorolac Tromethamine 15 mg 03/11/19 13:48 03/12/19 17:40 Toradol IVP 03/16/19 13:49 15 mg Q8H PRN Administration Pain Losartan Potassium 100 mg 03/11/19 09:00 03/13/19 09:33 Cozaar PO 100 mg DAILY ALIZA Administration Methotrexate Sodium 20 mg 03/11/19 14:00 03/11/19 16:13 Methotrexate Sodium PO 20 mg Q7D ALIZA Administration Miscellaneous Medication 25 mg 03/12/19 09:00 03/13/19 11:37 Movantik PO 25 mg DAILY ALIZA Administration Prednisone 5 mg 03/11/19 09:00 03/13/19 09:34 Prednisone PO 5 mg DAILY ALIZA Administration Sodium Chloride 10 ml 03/11/19 21:00 03/13/19 09:30 Flush - Normal Saline IVF 10 ml Q12HR ALIZA Administration - Exam General Appearance: NAD Eye: anicteric sclera ENT: moist mucosa Neck: supple, symmetric Heart: RRR, no rubs Respiratory: CTAB, no rales Gastrointestinal: soft, non-tender Extremities: no clubbing Neurological: no weakness Psychiatric: normal affect, normal behavior Hosp A/P (1) Hyponatremia Code(s): E87.1 - HYPO-OSMOLALITY AND HYPONATREMIA Status: Acute (2) Sinus pause Code(s): I45.5 - OTHER SPECIFIED HEART BLOCK Status: Acute (3) HTN (hypertension) Code(s): I10 - ESSENTIAL (PRIMARY) HYPERTENSION Status: Chronic Qualifiers: Hypertension type: essential hypertension Qualified Code(s): I10 - Essential (primary) hypertension (4) Dementia Code(s): F03.90 - UNSPECIFIED DEMENTIA WITHOUT BEHAVIORAL DISTURBANCE Status: Chronic Qualifiers: Dementia type: unspecified type Dementia behavioral disturbance: without behavioral disturbance Qualified Code(s): F03.90 - Unspecified dementia without behavioral disturbance (5) Polymyalgia rheumatica Code(s): M35.3 - POLYMYALGIA RHEUMATICA Status: Chronic (6) Sinus bradycardia Code(s): R00.1 - BRADYCARDIA, UNSPECIFIED Status: Resolved - Plan out of bed/ambulate Hold metoprolol. Continue prednisone for PMR. PRN Toradol for pain. Consult nephrology re: hyponatremia.
[2019-03-13 16:07] LABS: Potassium, Urine 40.5 mmol/L
--- NOTE | 2019-03-13 16:19 | CON ---
DATE OF CONSULTATION: 03/13/2019 CONSULTING PHYSICIAN: Reed Velázquez MD REQUESTING PHYSICIAN: Dr. Eisenberg. REASON FOR CONSULTATION: Hyponatremia. IMPRESSION: 1. Hyponatremia, query cause. This is possibly related to syndrome of inappropriate antidiuretic hormone secretion versus a component of Thiazide as the patient used to be on chlorthalidone. 2. Hypertension, suboptimally controlled. PLAN: 1. Urine chemistry to be able to identify what type of hyponatremia. 2. Hydralazine to be added to this patient's antihypertensive regimen, especially in this patient with significant bradycardia. HISTORY: History is that of 83-year-old female patient who presented here with what has been described as low heart rate. The patient seems to be on multiple negative chronotropic medication because of atrial fibrillation. The patient, however, noted with low sodium, thus the need for Renal consultation. PAST MEDICAL HISTORY: Significant for polymyalgia rheumatica, atrial fibrillation, hypertension, and senile dementia. SOCIAL HISTORY: Denies alcohol, tobacco, or illicit drug use. ALLERGIES: TO HYDROCODONE. FAMILY HISTORY: Not significantly related to present illness. REVIEW OF SYSTEMS: As documented in the body of the history. All other systems were reviewed and found not to be significantly related to presenting illness. PHYSICAL EXAMINATION: VITAL SIGNS: The patient noted with the following vital signs; afebrile, temperature 99, pulse 67, respiratory rate of 16, O2 saturation is 96% with blood pressure of 201/91 to 159/74. HEENT: Unremarkable. CARDIOVASCULAR SYSTEM: First and second heart sounds were heard. RESPIRATORY SYSTEM: Clear to auscultation. DIGESTIVE: Revealed a benign abdomen with positive bowel sounds. EXTREMITIES: No peripheral edema. SKIN: No new gross rash. LYMPHATICS: No peripheral lymphadenopathy. In summary, an 83-year-old female patient who presented here with low heart rate , noted to be hyponatremic. Thank you for this consultation. We will follow with you. Job ID: [id number] MTDD
[2019-03-13] MEDS: hydrALAZINE 20 MG/ML VIAL SLOW IVP PRN (16:26)
[2019-03-13] MEDS: Acetaminophen 325 MG TAB PO PRN (18:13)
[2019-03-13] MEDS: hydrALAZINE 25 MG TAB PO SCH (20:38)
[2019-03-13] MEDS: Ketorolac Tromethamine 30 MG/ML VIAL IVP PRN (23:55)
[2019-03-14] MEDS: hydrALAZINE 20 MG/ML VIAL SLOW IVP PRN (06:09)
[2019-03-14] MEDS: Losartan 25 MG TAB PO SCH (08:00)
[2019-03-14] MEDS: hydrALAZINE 25 MG TAB PO SCH ×3 (08:00→20:17)
[2019-03-14] MEDS: Isosorbide Dinitrate 5 MG TAB PO SCH ×2 (08:00→20:17)
[2019-03-14] MEDS: Aspirin 81 mg Enteric Coated Tablet PO SCH (08:00)
[2019-03-14] MEDS: Gabapentin 300 MG CAP PO SCH (08:01)
[2019-03-14] MEDS: Enoxaparin Sodium 40 MG/0.4 ML SYRINGE SC SCH (09:00)
[2019-03-14 09:23] LABS: #Eosinphils 0.1 thou/uL (0.0-0.7); #Monocytes 0.2 thou/uL (0.11-0.59); #Neutrophils 3.8 thou/uL (1.40-6.50); %Basophils 0.5 % (0.0-1.0); %Eosinophils 1.2 % (0.0-10.0); %Monocytes 4.1 % (0.0-10.0); %Neutrophils 75.3 % (42.0-75.0); Hemoglobin 12.7 g/dL (12.0-16.0); Mean Corpuscular HGB CONC 33.4 g/dL (32.0-36.0); Mean Corpuscular Volume 92.7 fL (78.0-98.0); Mean Platelet Volume 6.3 fL (7.4-10.4); Platelet Count 349 thou/uL (130-400); White Blood Cell (WBC) Count 5.1 thou/uL (4.8-10.8)
[2019-03-14 09:39] LABS: Anion Gap 12 mmol/L (10-20); BUN (Urea Nitrogen) 17 mg/dL (9.8-20.1); Calc. Creatinine Clearance 50 mL/min (70-130); Calcium 8.3 mg/dL (7.8-10.44); Carbon Dioxide 23 mmol/L (23-31); Chloride 95 mmol/L (98-107); Estimated GFR-MDRD Greater than 90; Glucose 97 mg/dL (83-110); Potassium 3.8 mmol/L (3.5-5.1); Sodium 126 mmol/L (136-145)
--- NOTE | 2019-03-14 10:18 | PRG ---
DATE OF SERVICE: 03/14/2019 SUBJECTIVE: The patient is seen and examined. Noted with the following vital signs. OBJECTIVE: VITAL SIGNS: Afebrile, temperature 97.9, pulse 69, blood pressure 183/79, respiratory rate of 16, and O2 saturations of 97%. HEENT: Unremarkable. CARDIOVASCULAR SYSTEM: First and second heart sounds were heard. RESPIRATORY SYSTEM: Clear to auscultation. DIGESTIVE SYSTEM: Revealed a benign abdomen. EXTREMITIES: No peripheral edema. SKIN: No new gross rash. LYMPHATICS: No peripheral lymphadenopathy. IMPRESSION: Hyponatremia, likely in the context of syndrome of inappropriate antidiuretic hormone secretion compounded by chlorthalidone usage. PLAN: 1. Permanently discontinue chlorthalidone. 2. Continue to restrict free water intake 3. High protein intake. 4. Further management to be dependent on the clinical course. Job ID: [id number] [facility]
[2019-03-14] MEDS ORDERED: Iopamidol 370 76% 50 ML VIAL FS ONE (15:23)
[2019-03-14] MEDS: predniSONE 5 MG TAB PO SCH (15:30)
--- NOTE | 2019-03-14 15:30 | PDOC.HOSPP ---
- Subjective Encounter Date: 03/14/19 Encounter Time: 07:20 Subjective: Pt seen for followup re: hyponatremia. feels well, denies any complaints. - Objective Vital Signs & Weight: Vital Signs (12 hours) Temp Pulse Resp BP BP Pulse Ox 03/14/19 11:42 98.4 F 75 21 H 132/61 75 L 03/14/19 08:00 69 183/79 H 97 03/14/19 07:47 97.9 F 69 16 183/79 H 97 03/14/19 06:10 63 184/79 H 03/14/19 06:09 63 184/79 H 03/14/19 04:00 98.4 F 68 16 188/88 H 97 03/14/19 03:29 96 Weight Admit Weight 102 lb 5 oz Weight 104 lb 8 oz I&O: 03/13/19 03/14/19 03/15/19 06:59 06:59 06:59 Intake Total 1530 1610 Output Total 400 1900 Balance 1130 -290 Result Diagrams: 03/14/19 08:59 03/14/19 08:59 Additional Labs: Labs and MARs reviewed by me EKG Reviewed by me: Yes (Tele: NSR) Hospitalist ROS - Review of Systems Cardiovascular: denies: chest pain, palpitations, orthopnea, paroxysmal noc. dyspnea, edema, light headedness Gastrointestinal: denies: nausea, vomiting, abdominal pain, diarrhea, constipation, melena, hematochezia - Medication Medications: Active Medications Generic Name Dose Route Start Last Admin Trade Name Freq PRN Reason Stop Dose Admin Acetaminophen 650 mg 03/10/19 19:19 03/13/19 18:13 Tylenol PO 650 mg Q4H PRN Administration Headache/Fever/Mild Pain (1-3) Aspirin 81 mg 03/11/19 09:00 03/14/19 08:00 Ecotrin PO 81 mg DAILY ALIZA Administration Enoxaparin Sodium 40 mg 03/11/19 09:00 03/13/19 09:34 Lovenox SC 40 mg 0900 ALIZA Administration Gabapentin 300 mg 03/11/19 09:00 03/14/19 08:01 Neurontin PO 300 mg DAILY ALIZA Administration Hydralazine HCl 10 mg 03/11/19 09:03 03/14/19 06:09 Apresoline SLOW IVP 10 mg Q6H PRN Administration SBP Greater Than 170 Hydralazine HCl 25 mg 03/13/19 21:00 03/14/19 08:00 Apresoline PO 25 mg TID ALIZA Administration Isosorbide Dinitrate 10 mg 03/10/19 21:00 03/14/19 08:00 Isordil PO 10 mg BID ALIZA Administration Ketorolac Tromethamine 15 mg 03/11/19 13:48 03/13/19 23:55 Toradol IVP 03/16/19 13:49 15 mg Q8H PRN Administration Pain Losartan Potassium 100 mg 03/11/19 09:00 03/14/19 08:00 Cozaar PO 100 mg DAILY ALIZA Administration Methotrexate Sodium 20 mg 03/11/19 14:00 03/11/19 16:13 Methotrexate Sodium PO 20 mg Q7D ALIZA Administration Miscellaneous Medication 25 mg 03/12/19 09:00 03/13/19 11:37 Movantik PO 25 mg DAILY ALIZA Administration Prednisone 5 mg 03/11/19 09:00 03/13/19 09:34 Prednisone PO 5 mg DAILY ALIZA Administration Sodium Chloride 10 ml 03/11/19 21:00 03/13/19 20:39 Flush - Normal Saline IVF 10 ml Q12HR ALIZA Administration Sodium Chloride 10 ml 03/11/19 09:06 03/13/19 16:27 Flush - Normal Saline IVF 10 ml PRN PRN Administration Saline Flush - Exam General Appearance: NAD Eye: anicteric sclera ENT: moist mucosa Neck: supple, no JVD Heart: RRR Respiratory: CTAB Gastrointestinal: soft, non-tender Extremities: no clubbing Musculoskeletal: normal tone, normal strength Psychiatric: normal affect, normal behavior Hosp A/P (1) Hyponatremia Code(s): E87.1 - HYPO-OSMOLALITY AND HYPONATREMIA Status: Acute (2) Sinus pause Code(s): I45.5 - OTHER SPECIFIED HEART BLOCK Status: Acute (3) HTN (hypertension) Code(s): I10 - ESSENTIAL (PRIMARY) HYPERTENSION Status: Chronic Qualifiers: Hypertension type: essential hypertension Qualified Code(s): I10 - Essential (primary) hypertension (4) Dementia Code(s): F03.90 - UNSPECIFIED DEMENTIA WITHOUT BEHAVIORAL DISTURBANCE Status: Chronic Qualifiers: Dementia type: unspecified type Dementia behavioral disturbance: without behavioral disturbance Qualified Code(s): F03.90 - Unspecified dementia without behavioral disturbance (5) Polymyalgia rheumatica Code(s): M35.3 - POLYMYALGIA RHEUMATICA Status: Chronic (6) Sinus bradycardia Code(s): R00.1 - BRADYCARDIA, UNSPECIFIED Status: Resolved - Plan 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 For PPM today. Continue prednisone for PMR. PRN Toradol for pain.
[2019-03-14] MEDS ORDERED: CEFAZOLIN 1 GM VIAL ONE (16:46)
[2019-03-14] MEDS ORDERED: Gentamicin 80 MG/2 ML VIAL ONE (16:46)
[2019-03-14] MEDS ORDERED: Lidocaine 1% (PF) 30 ML VIAL ONE (17:11)
[2019-03-14] MEDS ORDERED: Midazolam HCl 2 mg/2 ml Vial ONE (17:16)
[2019-03-14] MEDS ORDERED: Fentanyl 100 MCG/2 ML VIAL ONE (17:16)
--- NOTE | 2019-03-14 18:59 | RAD ---
EXAM: CHEST ONE VIEW HISTORY: Post cardiac device placement. COMPARISON: 03/10/2019 FINDINGS: There has been interval placement of a dual-lead left subclavian cardiac pacemaking device. No pneumo thorax is seen. Lungs appear clear. Cardiac silhouette is magnified by projection but stable in size. Vascular calcifications are seen in the thoracic aorta. 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 No other interval change. IMPRESSION: Interval placement of a dual-lead left subclavian cardiac pacemaking device. No pneumothorax is visua lized. There are densities overlying the chest related to overlying skin folds and overlying artifact.
[2019-03-14] MEDS ORDERED: Acetaminophen/Codeine 30-300mg Tablet PO PRN ×2 (19:00)
[2019-03-14] MEDS: Cephalexin 250 MG CAP PO SCH (20:17)
[2019-03-14] MEDS: Acetaminophen 325 MG TAB PO PRN (20:23)
[2019-03-15] MEDS: Ketorolac Tromethamine 30 MG/ML VIAL IVP PRN (01:16)
[2019-03-15 04:19] LABS: #Eosinphils 0.1 thou/uL (0.0-0.7); #Lymphocytes 1.3 thou/uL (1.20-3.40); #Monocytes 0.3 thou/uL (0.11-0.59); #Neutrophils 5.8 thou/uL (1.40-6.50); %Basophils 0.4 % (0.0-1.0); %Eosinophils 1.6 % (0.0-10.0); %Lymphocytes 16.9 % (21.0-51.0); %Monocytes 3.7 % (0.0-10.0); %Neutrophils 77.4 % (42.0-75.0); Hemoglobin 11.9 g/dL (12.0-16.0); Mean Corpuscular HGB CONC 33.3 g/dL (32.0-36.0); Mean Corpuscular Volume 93.1 fL (78.0-98.0); Mean Platelet Volume 6.3 fL (7.4-10.4); Platelet Count 288 thou/uL (130-400); RBC Distribution Width 12.1 % (11.5-14.5); Red Blood Cell (RBC) Count 3.84 mill/uL (4.20-5.40); White Blood Cell (WBC) Count 7.5 thou/uL (4.8-10.8)
[2019-03-15 04:43] LABS: Anion Gap 11 mmol/L (10-20); BUN (Urea Nitrogen) 20 mg/dL (9.8-20.1); Calc. Creatinine Clearance 44 mL/min (70-130); Calcium 8.3 mg/dL (7.8-10.44); Carbon Dioxide 23 mmol/L (23-31); Chloride 98 mmol/L (98-107); Estimated GFR-MDRD 80; Glucose 88 mg/dL (83-110); Potassium 3.8 mmol/L (3.5-5.1); Sodium 128 mmol/L (136-145)
[2019-03-15] MEDS: Cephalexin 250 MG CAP PO SCH ×3 (08:26→19:37)
[2019-03-15] MEDS: Enoxaparin Sodium 40 MG/0.4 ML SYRINGE SC SCH (08:26)
[2019-03-15] MEDS: Aspirin 81 mg Enteric Coated Tablet PO SCH (08:26)
[2019-03-15] MEDS: Isosorbide Dinitrate 5 MG TAB PO SCH ×2 (08:28→19:37)
[2019-03-15] MEDS: Gabapentin 300 MG CAP PO SCH (08:28)
[2019-03-15] MEDS: hydrALAZINE 25 MG TAB PO SCH ×3 (08:29→19:37)
[2019-03-15] MEDS: Losartan 25 MG TAB PO SCH (08:29)
[2019-03-15] MEDS: predniSONE 5 MG TAB PO SCH (08:29)
[2019-03-15] MEDS: Acetaminophen 325 MG TAB PO PRN (09:33)
--- NOTE | 2019-03-15 10:40 | PDOC.HOSPP ---
- Subjective Encounter Date: 03/15/19 Encounter Time: 08:35 Subjective: expresses no complaint.. - Objective Vital Signs & Weight: Vital Signs (12 hours) Temp Pulse Resp BP BP Pulse Ox 03/15/19 07:39 97.9 F 65 16 191/80 H 96 03/15/19 04:00 66 148/68 H 03/15/19 03:51 98.1 F 66 18 148/68 H 99 03/14/19 23:54 68 13 99/53 L 03/14/19 23:50 98.2 F 86 18 138/76 97 03/14/19 23:45 86 138/76 03/14/19 22:45 80 121/60 Weight Admit Weight 102 lb 5 oz Weight 104 lb 8 oz I&O: 03/14/19 03/15/19 03/16/19 06:59 06:59 06:59 Intake Total 1610 300 Output Total 1900 950 Balance -290 -650 Result Diagrams: 03/15/19 03:44 03/15/19 03:44 Hospitalist ROS - Medication Medications: Active Medications Generic Name Dose Route Start Last Admin Trade Name Freq PRN Reason Stop Dose Admin Acetaminophen 650 mg 03/10/19 19:19 03/15/19 09:33 Tylenol PO 650 mg Q4H PRN Administration Headache/Fever/Mild Pain (1-3) Aspirin 81 mg 03/11/19 09:00 03/15/19 08:26 Ecotrin PO 81 mg DAILY ALIZA Administration Cephalexin 250 mg 03/14/19 21:00 03/15/19 08:26 Keflex PO 03/24/19 15:01 250 mg TID ALIZA Administration Enoxaparin Sodium 40 mg 03/11/19 09:00 03/15/19 08:26 Lovenox SC 40 mg 0900 ALIZA Administration Gabapentin 300 mg 03/11/19 09:00 03/15/19 08:28 Neurontin PO 300 mg DAILY ALIZA Administration Hydralazine HCl 10 mg 03/11/19 09:03 03/14/19 06:09 Apresoline SLOW IVP 10 mg Q6H PRN Administration SBP Greater Than 170 Hydralazine HCl 25 mg 03/13/19 21:00 03/15/19 08:29 Apresoline PO 25 mg TID ALIZA Administration Isosorbide Dinitrate 10 mg 03/10/19 21:00 03/15/19 08:28 Isordil PO 10 mg BID ALIZA Administration Ketorolac Tromethamine 15 mg 03/11/19 13:48 03/15/19 01:16 Toradol IVP 03/16/19 13:49 15 mg Q8H PRN Administration Pain Losartan Potassium 100 mg 03/11/19 09:00 03/15/19 08:29 Cozaar PO 100 mg DAILY ALIZA Administration Methotrexate Sodium 20 mg 03/11/19 14:00 03/11/19 16:13 Methotrexate Sodium PO 20 mg Q7D ALIZA Administration Miscellaneous Medication 25 mg 03/12/19 09:00 03/15/19 08:29 Movantik PO 25 mg DAILY ALIZA Administration Prednisone 5 mg 03/11/19 09:00 03/15/19 08:29 Prednisone PO 5 mg DAILY ALIZA Administration Sodium Chloride 10 ml 03/11/19 21:00 03/15/19 08:29 Flush - Normal Saline IVF 10 ml Q12HR ALIZA Administration Sodium Chloride 10 ml 03/11/19 09:06 03/13/19 16:27 Flush - Normal Saline IVF 10 ml PRN PRN Administration Saline Flush Sodium Chloride 10 ml 03/14/19 19:00 03/14/19 20:18 Flush - Normal Saline IVF 10 ml PRN PRN Administration Saline Flush - Exam General Appearance: NAD Neck: no JVD Heart: RRR Respiratory: CTAB Gastrointestinal: soft Extremities: no edema Neurological: no weakness Hosp A/P (1) Pacemaker Code(s): Z95.0 - PRESENCE OF CARDIAC PACEMAKER Status: Acute (2) Hyponatremia Code(s): E87.1 - HYPO-OSMOLALITY AND HYPONATREMIA Status: Acute Plan: due to HCTZ.. Improving.. (3) Dementia Code(s): F03.90 - UNSPECIFIED DEMENTIA WITHOUT BEHAVIORAL DISTURBANCE Status: Chronic Qualifiers: Dementia type: unspecified type Dementia behavioral disturbance: without behavioral disturbance Qualified Code(s): F03.90 - Unspecified dementia without behavioral disturbance (4) HTN (hypertension) Code(s): I10 - ESSENTIAL (PRIMARY) HYPERTENSION Status: Chronic Qualifiers: Hypertension type: essential hypertension Qualified Code(s): I10 - Essential (primary) hypertension - Plan s/p pacemaker, stable. Home when ok with cardiology..
--- NOTE | 2019-03-15 11:43 | DIS ---
DATE OF ADMISSION: 03/10/2019 DATE OF DISCHARGE: 03/15/2019 ADMITTING DIAGNOSES: Severe bradycardia, hyponatremia, atrial fibrillation, polymyalgia rheumatica, hypertension. DISCHARGE DIAGNOSES: Severe bradycardia, hyponatremia, atrial fibrillation, polymyalgia rheumatica, hypertension. RESIDENT CARE ASSISTANT: Dr. Velázquez and Dr. Baker. PROCEDURE: Pacemaker placement, chest x-ray. HOSPITALIZATION COURSE: Uncomplicated, responded well to management. The patient is clinically stable at this time, being discharged home. DISCHARGE MEDICATIONS: Please see discharge medication reconciliation sheet. The patient is to follow up with her primary care physician and also with her medical social consultant for two days. PHYSICAL EXAMINATION: Please refer to the patient's medical record progress note section. DISCHARGE TIME: 32 minutes. Job ID: [id number] MTDD
[2019-03-15] MEDS: hydrALAZINE 20 MG/ML VIAL SLOW IVP PRN (18:25)
--- NOTE | 2019-03-15 20:56 | PRG ---
DATE OF SERVICE: 03/15/2019 SUBJECTIVE: The patient is seen and examined. Noted with the following vital signs. OBJECTIVE: VITAL SIGNS: Afebrile, temperature 97.6, pulse 74, respirations 16 , O2 saturations 97%, blood pressure 174/81. HEENT: Unremarkable. CARDIOVASCULAR SYSTEM: First and second heart sounds were heard. RESPIRATORY SYSTEM: Clear to auscultation. DIGESTIVE SYSTEM: Revealed a benign abdomen. Positive bowel sounds. EXTREMITIES: No peripheral edema. SKIN: No new gross rash. LYMPHATICS: No peripheral lymphadenopathy. LABORATORY INVESTIGATIONS: Sodium now at 128. IMPRESSION: Hyponatremia in the context of thiazide diuretic usage compounded by mild component of syndrome of inappropriate antidiuretic hormone secretion. PLAN: 1. Hyponatremia. Discontinue chlorthalidone permanently 2. Increase protein intake, in the way of animal meat. 3. Further management to be dependent on the clinical course. Job ID: [id number] MTDD
[2019-03-16] MEDS: Isosorbide Dinitrate 5 MG TAB PO SCH ×2 (08:10→20:45)
[2019-03-16] MEDS: Enoxaparin Sodium 40 MG/0.4 ML SYRINGE SC SCH (08:10)
[2019-03-16] MEDS: hydrALAZINE 25 MG TAB PO SCH ×3 (08:11→20:45)
[2019-03-16] MEDS: Gabapentin 300 MG CAP PO SCH (08:11)
[2019-03-16] MEDS: Cephalexin 250 MG CAP PO SCH ×3 (08:11→20:45)
[2019-03-16] MEDS: Losartan 25 MG TAB PO SCH (08:11)
[2019-03-16] MEDS: predniSONE 5 MG TAB PO SCH (08:11)
[2019-03-16] MEDS: Aspirin 81 mg Enteric Coated Tablet PO SCH (08:11)
--- NOTE | 2019-03-16 09:28 | PDOC.HOSPP ---
- Subjective Encounter Date: 03/16/19 Encounter Time: 20:00 Subjective: No complaint expressed... - Objective Vital Signs & Weight: Vital Signs (12 hours) Temp Pulse Resp BP BP Pulse Ox 03/16/19 08:11 65 187/80 H 03/16/19 08:00 98.6 F 65 16 187/80 H 97 03/16/19 03:39 98.2 F 65 16 181/83 H 97 03/16/19 03:04 98.2 F 65 16 181/83 H 97 03/16/19 00:00 97.3 F L 63 16 152/69 H 98 03/15/19 23:18 97.3 F L 63 16 152/69 H 98 Weight Admit Weight 102 lb 5 oz Weight 104 lb 8 oz I&O: 03/15/19 03/16/19 03/17/19 06:59 06:59 06:59 Intake Total 300 1200 Output Total 950 1000 Balance -650 200 Result Diagrams: 03/15/19 03:44 03/15/19 03:44 Hospitalist ROS - Medication Medications: Active Medications Generic Name Dose Route Start Last Admin Trade Name Freq PRN Reason Stop Dose Admin Acetaminophen 650 mg 03/10/19 19:19 03/15/19 09:33 Tylenol PO 650 mg Q4H PRN Administration Headache/Fever/Mild Pain (1-3) Aspirin 81 mg 03/11/19 09:00 03/16/19 08:11 Ecotrin PO 81 mg DAILY ALIZA Administration Cephalexin 250 mg 03/14/19 21:00 03/16/19 08:11 Keflex PO 03/24/19 15:01 250 mg TID ALIZA Administration Enoxaparin Sodium 40 mg 03/11/19 09:00 03/16/19 08:10 Lovenox SC 40 mg 0900 ALIZA Administration Gabapentin 300 mg 03/11/19 09:00 03/16/19 08:11 Neurontin PO 300 mg DAILY ALIZA Administration Hydralazine HCl 10 mg 03/11/19 09:03 03/15/19 18:25 Apresoline SLOW IVP 10 mg Q6H PRN Administration SBP Greater Than 170 Hydralazine HCl 25 mg 03/13/19 21:00 03/16/19 08:11 Apresoline PO 25 mg TID ALIZA Administration Isosorbide Dinitrate 10 mg 03/10/19 21:00 03/16/19 08:10 Isordil PO 10 mg BID ALIZA Administration Ketorolac Tromethamine 15 mg 03/11/19 13:48 03/15/19 01:16 Toradol IVP 03/16/19 13:49 15 mg Q8H PRN Administration Pain Losartan Potassium 100 mg 03/11/19 09:00 03/16/19 08:11 Cozaar PO 100 mg DAILY ALIZA Administration Methotrexate Sodium 20 mg 03/11/19 14:00 03/11/19 16:13 Methotrexate Sodium PO 20 mg Q7D ALIZA Administration Miscellaneous Medication 25 mg 03/12/19 09:00 03/16/19 08:10 Movantik PO 25 mg DAILY ALIZA Administration Prednisone 5 mg 03/11/19 09:00 03/16/19 08:11 Prednisone PO 5 mg DAILY ALIZA Administration Sodium Chloride 10 ml 03/11/19 21:00 03/16/19 09:01 Flush - Normal Saline IVF 10 ml Q12HR ALIZA Administration Sodium Chloride 10 ml 03/11/19 09:06 03/13/19 16:27 Flush - Normal Saline IVF 10 ml PRN PRN Administration Saline Flush Sodium Chloride 10 ml 03/14/19 19:00 03/14/19 20:18 Flush - Normal Saline IVF 10 ml PRN PRN Administration Saline Flush - Exam Neck: no JVD Heart: RRR Respiratory: CTAB Gastrointestinal: soft Extremities: no edema Neurological: no focal deficits Psychiatric: normal affect Hosp A/P (1) Pacemaker Code(s): Z95.0 - PRESENCE OF CARDIAC PACEMAKER Status: Acute (2) Hyponatremia Code(s): E87.1 - HYPO-OSMOLALITY AND HYPONATREMIA Status: Acute Plan: Due HCTZ..HCTZ on hold. (3) Dementia Code(s): F03.90 - UNSPECIFIED DEMENTIA WITHOUT BEHAVIORAL DISTURBANCE Status: Chronic Qualifiers: Dementia type: unspecified type Dementia behavioral disturbance: without behavioral disturbance Qualified Code(s): F03.90 - Unspecified dementia without behavioral disturbance (4) HTN (hypertension) Code(s): I10 - ESSENTIAL (PRIMARY) HYPERTENSION Status: Chronic Qualifiers: Hypertension type: essential hypertension Qualified Code(s): I10 - Essential (primary) hypertension - Plan s/p pacemaker, stable. Discharge held 0n 03/15 because of placement.. Awaiting placement.
[2019-03-16] MEDS: Acetaminophen 325 MG TAB PO PRN (19:32)
--- NOTE | 2019-03-16 21:37 | PRG ---
DATE OF SERVICE: 03/16/2019 SUBJECTIVE: The patient is seen and examined with no new complaint, noted with the following vital signs. OBJECTIVE: VITAL SIGNS: Afebrile, temperature 98.8, pulse 78, respiratory rate of 16, O2 saturations are 96%, blood pressure 179/79. HEENT: Unremarkable. CARDIOVASCULAR SYSTEM: First and second heart sounds were heard. RESPIRATORY SYSTEM: Clear to auscultation. DIGESTIVE SYSTEM: Revealed a benign abdomen with positive bowel sounds. EXTREMITIES: No peripheral edema. SKIN: No new gross rash. LYMPHATICS: No peripheral lymphadenopathy. 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 PLAN: 1. Permanently discontinue chlorthalidone. 2. Further management to be dependent on the clinical course. 3. Outpatient Nephrology followup status post discharge recommended. Job ID: [id number]
[2019-03-17] MEDS: Enoxaparin Sodium 40 MG/0.4 ML SYRINGE SC SCH (08:12)
[2019-03-17] MEDS: Isosorbide Dinitrate 5 MG TAB PO SCH (08:12)
[2019-03-17] MEDS: Aspirin 81 mg Enteric Coated Tablet PO SCH (08:13)
[2019-03-17] MEDS: Cephalexin 250 MG CAP PO SCH (08:13)
[2019-03-17] MEDS: Gabapentin 300 MG CAP PO SCH (08:13)
[2019-03-17] MEDS: hydrALAZINE 25 MG TAB PO SCH (08:14)
[2019-03-17] MEDS: predniSONE 5 MG TAB PO SCH (08:14)
[2019-03-17] MEDS: Losartan 25 MG TAB PO SCH (08:24)
[2019-03-17 11:17] VITALS: BP 141/63; TEMP 99
--- NOTE | 2019-03-17 14:02 | PRG ---
DATE OF SERVICE: 03/17/2019 SUBJECTIVE: The patient is seen and examined with no new complaint, noted with the following vital signs. OBJECTIVE: VITAL SIGNS: Afebrile, temperature 99, pulse 69, respiratory rate of 16, O2 saturation of 96%, and blood pressure 141/63. HEENT: Unremarkable. CARDIOVASCULAR: First and second heart sounds were heard. RESPIRATORY: Clear to auscultation. DIGESTIVE: Revealed a benign abdomen with positive bowel sounds. EXTREMITIES: No peripheral edema. SKIN: No new gross rash. LYMPHATICS: No peripheral lymphadenopathy. IMPRESSION: Hyponatremia in the context of hydrochlorothiazide usage plus or minus mild syndrome of inappropriate antidiuretic hormone. PLAN: 1. Permanently discontinue chlorthalidone and continue this patient on high-protein diet. 2. Outpatient Nephrology followup, status post discharge recommended. Job ID: [id number]
--- NOTE | 2019-03-17 19:43 | DIS ---
DATE OF ADMISSION: 03/10/2019 DATE OF DISCHARGE: 03/17/2019 PRIMARY CARE PROVIDER: Dr. Deejya Lam. DISCHARGE DIAGNOSES: 1. Symptomatic bradycardia. 2. Hyponatremia. CONDITION OF PATIENT ON THE DAY OF DISCHARGE: Stable. I assessed Ms. Cerna on the day of discharge. She denies any chest pain or shortness of breath. Vital signs are stable. S1 and S2 are heard, regular. Lungs are clear to auscultation bilaterally. CONSULTATIONS DURING THIS HOSPITALIZATION: 1. Electrophysiology, Dr. Baker. 2. Nephrology, Dr. Velázquez. POST-ACUTE CARE FOLLOWUP: The patient is advised to follow up with primary care provider in 1 week's time, and with Nephrology and Electrophysiology Services in 2 to 3 weeks' time. HOSPITAL COURSE: Ms. Cerna is a pleasant 83-year-old lady, who was admitted to [facility] for symptomatic bradycardia on 03/10/2019. Please refer to my history and physical note dated 03/10/2019, for further details. Calcium channel jose miguel was held. She was started on beta josem iguel after her heart rate improved. However, she had sinus pauses. She underwent permanent pacemaker placement on 03/14/2019, with resolution of bradycardia. She was also hyponatremic, secondary to a combination of SIADH and chlorthalidone use. Chlorthalidone was held, with improvement in her sodium. On 03/15/2019, she had sodium 128, potassium 3.8, and creatinine 0.70. Her white count that day was 7500, hemoglobin 11.9, and platelet count 288,000. ESR during this hospitalization was 17. She has been evaluated for placement and is being discharged to [facility] for further management. DISCHARGE MEDICATIONS: 1. Aspirin 81 mg daily. 2. Gabapentin 300 mg at bedtime. 3. Isosorbide dinitrate 10 mg 2 times a day. 4. Losartan 100 mg daily. 5. Methotrexate 20 mg orally every week. 6. Movantik 25 mg daily. 7. Prednisone 5 mg daily. 8. Cephalexin 250 mg 3 times a day, 22 more doses. 9. Hydralazine 25 mg 3 times a day. Many thanks for allowing me to participate in your patient's care. Please feel free to contact me with any questions or concerns. DISCHARGE DESTINATION: [facility]. TIME SPENT: Total amount of time spent coordinating this discharge: 32 minutes. Job ID: [id number]
== END 2019-03-17 14:50 | disposition home health service (06) | DRG 243 ==
LOC: ERS 16:11 → 2NO 20:53
PROVIDERS: ADMIT Internal Medicine; ATTEND Internal Medicine
PROC: 0JH606Z Insertion of Pacemaker, Dual Chamber into Chest Subcutaneous Tissue and Fascia, Open Approach (ICD-10-PCS; principal; 2019-03-14)
PROC: 02H63JZ Insertion of Pacemaker Lead into Right Atrium, Percutaneous Approach (ICD-10-PCS; 2019-03-14)
PROC: 02HK3JZ Insertion of Pacemaker Lead into Right Ventricle, Percutaneous Approach (ICD-10-PCS; 2019-03-14)
DX: R00.1 Bradycardia, unspecified (principal); E22.2 Syndrome of inappropriate secretion of antidiuretic hormone; T50.2X5A Adverse effect of carbonic-anhydrase inhibitors, benzothiadiazides and other diuretics, initial encounter; M35.3 Polymyalgia rheumatica; F03.90 Unspecified dementia, unspecified severity, without behavioral disturbance, psychotic disturbance, mood disturbance, and anxiety; I48.0 Paroxysmal atrial fibrillation; Z88.5 Allergy status to narcotic agent; Z79.899 Other long term (current) drug therapy; Z79.82 Long term (current) use of aspirin; Z90.710 Acquired absence of both cervix and uterus
CPT/HCPCS: 33208; 36005; 36415; 71045; 75820; 80048; 80053; 82436; 83735; 83930; 83935; 84133; 84300; 84443; 84484; 85025; 85610; 85652; 85730; 93005; 99152; 99153; C1785; C1898; J0360; J0690; J1580; J1650; J1885; J2001; J2250; J3010; J3490; J7512; J8610; Q9967

== ENCOUNTER 2019-03-24 00:13 | Emergency (ER) | payer MEDICARE, BC ==
[2019-03-24] MEDS ORDERED: Morphine 4 MG/ML VIAL ONE (00:57)
[2019-03-24] MEDS ORDERED: Ondansetron PF 4 MG/2 ML Vial ONE (00:58)
[2019-03-24] MEDS ORDERED: traMADol HCl 50 MG TAB ONE (04:56)
--- NOTE | 2019-03-24 08:31 | RAD ---
TWO VIEWS OF THE RIGHT SHOULDER: DATE: 03/24/2019. COMPARISON: None. HISTORY: Pain. FINDINGS: There is a corticated osseous density superior to the humeral head measuring 1.2 cm. No widening of the acromioclavicular or coracoclavicular interspace. No dislocation is seen on the scapular-Y view. There is degenerative change involving the glenohumeral joint with joint space narrowing, osteophyt e formation, and subchondral sclerosis. IMPRESSION: Corticated osseous fragment measuring 1.2 cm superior to the humeral head suggesting a prior fracture fragment/intraarticular loose body. No definite acute fracture or dislocation. Findings could be b jeremiah assessed via CT as clinically warranted. POS: JOHN
== END 2019-03-24 05:12 ==
LOC: ERS 00:13
DX: M25.511 Pain in right shoulder (principal); I48.91 Unspecified atrial fibrillation; I10 Essential (primary) hypertension; M35.3 Polymyalgia rheumatica; Z79.899 Other long term (current) drug therapy
CPT/HCPCS: 96374; 96375; J2270; J2405